=== PATIENT | male | born 1960 | race Caucasian/White ===

== ENCOUNTER → 2017-03-30 12:16 | Day surgery (SDC) | payer MEDICARE, MEDICAID ==
--- NOTE | 2017-03-14 09:39 | HP ---
PREOPERATIVE HISTORY AND PHYSICAL: DATE OF SURGERY: 03/30/17 DATE OF OFFICE VISIT: 03/10/17 ATTENDING SURGEON: Marcelina Navas MD * (DICTATED BY CELIO JIMENEZ) PROCEDURES: Left shoulder arthroscopic decompression and debridement, superior capsular reconstruction. CHIEF COMPLAINT: Left shoulder pain. HISTORY OF PRESENT ILLNESS: Prabhjot is a 56-year-old male who presents to the clinic for followup of left shoulder pain for almost 2 years. He has arthritis and a massive rotator cuff tear. He has failed conservative measures to include injections and has therefore agreed to undergo a left shoulder arthroscopic decompression and debridement, superior capsular reconstruction with Dr. Navas on 03/30/17. PAST MEDICAL HISTORY: 1. Asthma. 2. Hypertension. 3. BPH. 4. Allergies. PAST SURGICAL HISTORY: Bilateral knee surgeries and 3 shoulder surgeries on the right side. MEDICATIONS: 1. Diazepam 2 mg take 1 to 2, at 30 minutes prior to procedure. 2. Voltaren 1% apply 2 g to the affected area 4 times a day. 3. Albuterol 90 mcg/act 2 puffs 4 times a day as needed. 4. Advair 250/50 one puff twice a day. 5. Flomax 0.4 mg 1 by mouth daily. 6. Singulair 10 mg 1 by mouth daily. 7. Lipitor 40 mg 1 by mouth at night. 8. Morphine sulfate 15 mg 1 by mouth twice a day. 9. Trazodone 100 mg as needed. j10. Metoprolol tartrate 50 mg daily. 11. Tamsulosin HCl 4 mg daily. ALLERGIES: NSAIDS. FAMILY HISTORY: Positive for heart disease, diabetes, and cancer. SOCIAL HISTORY: He denies tobacco or illegal drug use. REVIEW OF SYSTEMS: A 14-point review of systems was reviewed with the patient and positive for current complaint, otherwise negative. He denies chest pain, shortness of breath. He denies history of bleeding disorder. He denies history of DVT or PE. He denies prior complications with anesthesia. PHYSICAL EXAMINATION GENERAL: Well-developed, well-nourished 56-year-old male, in no acute distress. Alert and oriented x3. Appropriate mood and affect. VITALS: Height 70, weight 210. Pulse 56, blood pressure 121/80, temperature 98.6, and BMI 30.1. HEENT: Normocephalic, atraumatic. PERRLA. Throat clear. NECK: Supple. PULMONARY: Lungs are clear to auscultation bilaterally. No wheezing, rhonchi, or rales. CARDIO: Regular rate and rhythm. S1 and S2. No murmurs, gallops, or rubs. No edema. ABDOMEN: Positive bowel sounds. Soft and nontender. NEURO: Alert and oriented x3. Cranial nerves grossly intact. Sensation is intact to light touch. MUSCULOSKELETAL: Left upper extremity, skin is intact. No warmth or erythema. Nontender to palpation. Forward flexion and abduction to 130 with a lot of pain , scapular compensation. Positive Poly's test; +4/5 strength with supraspinatus testing; +4/5 to infraspinatus and subscapularis testing. External rotation to 30 degrees. +2 radial pulses. Sensation is intact to light touch distally. STUDIES: MRI of the left shoulder revealed advanced glenohumeral arthritis and a massive full thickness rotator cuff tear with retraction and advanced muscle atrophy. IMPRESSION: Left shoulder osteoarthritis and rotator cuff tear. PLAN: The patient is scheduled to undergo a left shoulder arthroscopic decompression and debridement and superior capsular reconstruction for the treatment of massive full thickness rotator cuff tear with Dr. Navas on . Risks of surgery were discussed with the patient. The patient was given a refill for Voltaren gel today in clinic and he was given a script for Percocet to use for postop pain. The patient will follow up with Dr. Navas in 10 to 14 days after surgery for followup and suture removal. CELIO JIMENEZ [id number]/[facility] #: [id number] [facility] HOSPITALTalya
[~2017-03-30 12:16] MED LIST: Acetaminophen TAB* 325 MG ONE; Acetaminophen TAB* 325 MG PO ONE; Buffered Lidocaine 0.9% SYRIN* 5 ML/SYR SYRINGE INTRADERM ONE; Buffered Lidocaine 0.9% SYRIN* 5 ML/SYR SYRINGE ONE; Bupivacaine 0.25% SDV* 30 ML ONE; Dexamethasone IV* 4 MG/ML 1 ML (4 MG) IV SLOW PU ONE; Dexamethasone IV* 4 MG/ML 1 ML (4 MG) ONE; EPHEDrine (Pressors)* 50 MG/ML VIAL ONE; Famotidine IV* 10 MG/ML 2 ML (20 mg) IV ONE; Famotidine IV* 10 MG/ML 2 ML (20 mg) ONE; Glycopyrrolate IV* 0.2 MG/ML 1 ML VIAL ONE; HYDROmorphone INJ* 1 MG/ML CARPUJECT SYRINGE ONE; Levalbuterol 0.63MG/3ML NEB* UNIT OF USE INH PRN; Lidocaine 2% PF * 5 ML VIAL ONE; Lidocaine 2% PF* 10 ML AMP ONE; Midazolam* 1 MG/ML 2 ML VIAL (2 MG) ONE; Neostigmine Methylsulfate* 2 MG/2 ML SYRINGE ONE; PROCHLORPERAZINE INJ 5 MG/ML 2 ML VIAL IV PRN; Propofol* 10 MG/ML 20 ML BTL IV PUSH ONE; ROPIVACAINE 5 MG/ML 30 ML BTL (0.5%) ONE; Rocuronium* 10 MG/ML VIAL ONE; Scopolamine 1.5 mg* PATCH TRANSDERM PRN; Scopolomine PATCH Remove* 1 NOTE MISC PATCH OFF ONE; Sterile Water for Inj* 10 ML ONE; ceFAZolin 2 GM PREMIX (*) 2 GM/50 ML BAG IVPB ONE; diPHENhydraMINE IV* 50 MG/ML 1 ml VIAL (BENADRYL) IV PRN; fentaNYL* 50 MCG/ML 2 ML VIAL (100 MCG VIAL) ONE; oxyCODONE TAB* 5 MG TAB ONE; oxyCODONE TAB* 5 MG TAB PO PRN
[2017-03-30] MEDS: fentaNYL* 50 MCG/ML 2 ML VIAL (100 MCG VIAL) IV PRN ×2 (17:11→17:17)
[2017-03-30] MEDS: HYDROmorphone INJ* 1 MG/ML CARPUJECT SYRINGE IV PRN ×5 (17:13→18:10)
[2017-03-30 19:25] VITALS: BP 132/81
--- NOTE | 2017-04-10 02:21 | OP ---
CC: PCP OPERATIVE REPORT: DATE OF OPERATION: 03/30/17 DATE OF : 60 SURGEON: Marcelina Navas MD SHAFTING WORKER: CELIO Donnelly ANESTHESIOLOGIST: Juanita Dominguez MD ANESTHESIA: General with interscalene block, although the block may not have actually taken hold due to patient's pain. PRE-OP DIAGNOSIS: Left shoulder massive rotator cuff tears with severe glenohumeral osteoarthritis. POST-OP DIAGNOSIS: Left shoulder massive rotator cuff tears with severe glenohumeral osteoarthritis. OPERATIVE PROCEDURE: Left shoulder arthroscopy with: 1. Extensive glenohumeral debridement including chondroplasty. 2. Removal of foreign body x2. 3. Left shoulder superior capsular reconstruction. 4. Revision subacromial decompression. COMPLICATIONS: None. ESTIMATED BLOOD LOSS: Minimal. IMPLANTS USED: Two Q-Fix anchors along with glenoid and two 4.75 Healicoils for medial row and one Multifix in the lateral row as well as the ArthroFlex graft. INDICATIONS: Prabhjot Andujar is a 56-year-old male with a complicated shoulder history that has previous rotator cuff repair and severe osteoarthritis of the glenoid. He has MRI findings confirming a failed rotator cuff tear with significant atrophy, superior migration of his shoulder with severe osteoarthritis. As the patient is 56 years old, the option for reverse shoulder replacement is not appropriate at this age and we discussed options for his pain relief, which would be possibly superior capsular reconstruction. The patient was counseled that this may or may not be helpful. We would like to get until at least age 60 and then we can consider reverse replacement. Risks and benefits to surgery were discussed in length including but not limited to bleeding, infection, damage to nerves, vessels, surrounding structures, wound nonhealing, persistent pain, need for further surgery, scarring, stiffness, incomplete release of symptoms, risk of anesthesia, failure , fracture, need for further surgery, and risk of DVT. He has elected to proceed. DESCRIPTION OF PROCEDURE: The patient was greeted in the preoperative area by the attending surgeon. Correct extremity was marked. Consent was confirmed. He underwent interscalene nerve block by the anesthesiologist after which he was brought to the operating suite, where he was placed in supine position on the operating table. He then underwent general anesthesia with endotracheal intubation, after which the patient was positioned in right lateral decubitus position with all bony prominences padded. He was supported with an axillary roll and a pegboard. The left shoulder was draped unsterile with 10 pounds of traction. Left shoulder was then prepped and draped in the usual sterile fashion beginning with chlorhexidine soap, scrub, and alcohol wipe and a final prep with ChloraPrep. After appropriate surgical pause indicating side, site, procedure, and administration of antibiotics, a standard posterolateral portal was made sharply with 11 blade and the scope was introduced into the joint. Joint was examined. There was abundant grade 4 changes of the humeral head as well as grade 3 and 4 changes of the glenoid. The anterior portal was made in an outside-in fashion. The shaver was used to debride and do a small chondroplasty as well as remove whatever the anterior and posterior labrum that was impinging with unstable flaps. There was complete massive rotator cuff tear. The previous anchors were identified as well as other sutures. These were then removed x2. The lateral portal was made in an outside-in fashion. The undersurface of the acromion was identified and skeletonized. There was bursa that was present. There was irregular spur anterolaterally, which was taken down using a 4-0 oval augie. Once this was completed, attention was directed to the superior capsular reconstruction. The glenoid was repaired first by using the rasp as well as the augie to remove some of the labrum and allow for bony bleeding bed. A stab incision was made in Nevaiser's portal to allow for placement of the two Q-Fix anchors. These were then drilled and placed with excellent purchase. The greater tuberosity was then identified. There was partial tearing of the subscapularis but decision was made to not repair this as there was concern it would not heal. His supraspinatus was completely torn into a portion at least a quarter of the infraspinatus torn as well. A augie was then used to help decorticate the greater tuberosity and allow for bony bleeding bed. The rasp was also used. At this point, due to separate stab incisions, two 4.75 Healicoil anchors were placed anteriorly and posteriorly. At this point, the awl was also used to make small microfracture-like areas along the greater tuberosity to help stimulate bony bleeding and healing. At this point, arthroscopic ruler was then brought in through the portals to measure the anterior to posterior distance between the medial anchors and the lateral anchors and then the medial to lateral distance between the anterior anchors and the posterior anchors. These were then written down. The attending surgeon then went on the back table , prepared the graft to accommodate these measurements with at least a 1 cm ridge around it for overlap. The Tuohy needle was used to help perforate the graft to allow for easier passage of the sutures. Once the ArthroFlex graft was prepared, it was brought to the patient. First the medial Q-Fix anchors were passed through the graft through four separate stab incisions. One limb from each anchor was passed through the medial portion of the graft and tied together. The remaining strands were then passed separately through the graft as well. This would help allow shuttling of the graft to the medial portion. The 4.75 Healicoil anchors, one strand from each of those anchors were then passed through the lateral portion of the graft to be later tied down. Each strand was passed through four separate portions in the graft. Once all the sutures were passed and there was a stay suture left in each of the Q-Fix anchors for later dog ears, the Q-Fix sutures were then pulled to help shuttle the graft back into place. Once this was fully seated and appropriately positioned, they were then tied together to allow for fixation along the medial aspect along the glenoid. This helped to demonstrate that the graft was completely covering the area of interest. Then, the previously passed Healicoil stitches through the graft were then tied down and this allowed for horizontal mattress to configuration. The stay sutures through the anchors were then passed through any remaining portions of the graft that provided a dog ear and these were tied down. These were passed with simple knots. The remaining strands of sutures were then brought through a Multifix anchor, which was then placed for lateral row fixation. At this point, final images were obtained of the graft placement. The wounds were copiously irrigated with sterile saline. The wounds were closed with 3-0 nylon in interrupted fashion. The joint was injected with 0.25% Marcaine plain. Sterile dressings were applied as well as Cryo/Cuff and UltraSling. He was awoken from anesthesia and transferred to PACU in stable condition. POSTOPERATIVE PLAN: He will be nonweightbearing and no range of motion of the shoulder for 6 weeks. He will start physical therapy at 4 weeks. He will be discharged on pain medication as well as antibiotics. I will see the patient back in 10 to 14 days. DVT prophylaxis considered but deferred due to no previous personal or family history. [id number]/[facility] #: [id number] LOI
== END | disposition home or self-care (01) ==
LOC: OR 12:16
PROVIDERS: ATTEND Orthopaedic Surgery
DX: M75.122 Complete rotator cuff tear or rupture of left shoulder, not specified as traumatic (principal); M19.012 Primary osteoarthritis, left shoulder; G89.18 Other acute postprocedural pain; J45.909 Unspecified asthma, uncomplicated; I10 Essential (primary) hypertension; N40.0 Benign prostatic hyperplasia without lower urinary tract symptoms; Z88.6 Allergy status to analgesic agent
CPT/HCPCS: A9270-GY; C1713; J0690; J1100; J1170; J2001; J2250; J2704; J2795; J3010; Q4125

== ENCOUNTER 2017-06-04 09:10 | Emergency (ER) | payer MEDICARE, MEDICAID ==
[2017-06-04 09:21] VITALS: BP 121/72
--- OUTSIDE RECORDS SUMMARY | 2017-06-04 09:23 | XMS REPORT ---
:1960 External Reference #:[id number] Author Organization [facility] Address [address] [address] Phone [phone] Care Team Providers Name Role Phone Oliver Goss MD Primary Care Physician Unavailable Payers Type Date Identification Numbers Payment Provider Subscriber Medicare Primary Effective: Policy Number: Medicare Prabhjot Stahl 1989 [id number] PayID: [id number] [address] [place] [address] Medigap Part B Policy Number: [id number] Medicaid Prabhjot Stahl PayID: [id number] [address] [place] [address] Problems Date Description Provider Status Onset: 01/14/2015 Disorder of joint of shoulder region Thom Quigley M.D. Active Onset: 05/04/2016 Localized, primary osteoarthritis of the Marcelina Navas MD Active shoulder region Onset: 05/04/2016 Sprain of shoulder and upper arm Marcelina Navas MD Active Onset: 11/02/2016 Full thickness rotator cuff tear Marcelina Navas MD Active Social History Type Date Description Comments Lives With Alone ETOH Use Denies alcohol use Smoking Patient has never smoked Exercise Type/Frequency Exercises regularly Allergies, Adverse Reactions, Alerts Date Description Reaction Status Severity Comments 07/17/2008 Motrin active anaphylaxis 03/10/2017 NSAIDS active Medications Medication Date Status Form Strength Qnty SIG Indications Ordering Provider Oxycodone HCL Active Tablets 10mg 40tabs take 1-1 Marcelina 017 1/2 tato Navas MD every 4-6 hours as needed pain Cephalexin Active Tablets 500mg 12tabs take 1 by Marcelina 017 mouth four MD Yosef times a day x 3 days Oxycodone-Morales Active Tablets 5-325mg 60tabs 1-2 tabs by M19.012 Marcelina taminophen 017 mouth every MD Yosef 4-6 hours as needed for post op pain. Do not fill until 03/28/17 Diazepam Active Tablets 2mg 2tabs Take 1-2 Fabriceb 017 tabs 30 min MD Yosef prior to procedure Voltaren Active Gel 1% 100g apply 2g to Jin Tong [facility] four M.DGwendolyn times a day Albuterol Active Aerosol 90mcg/Act 1units 2 puffs qid Unknown 000 prn Advair Diskus Active Misc 250/50 1units 1 puff bid Unknown 000 Flomax Active Caps ER 0.4mg 90caps 1 po qd Unknown 000 24HR Singulair Active Tablets 10mg 30tabs 1 po qd Unknown 000 Lipitor Active Tablets 40mg 90tabs 1 po qhs Unknown 000 Morphine Active Tablets 15mg 20tabs 1 by mouth Unknown Sulfate 000 twice a day Trazodone HCL Active 100mg Unknown 000 Metoprolol Active 50mg Unknown Tartrate 000 Tamsulosin Active 4mg Unknown HCL 000 Percocet Hx Tablets 5-325mg 60tabs 1-2 po Thom 011 - q4-6h prn Young, pain M.D. 014 Toprol XL Hx Tablets 50mg 90tabs 1 po qd Qutaybeh 009 - ER 24HR S. Silvio Mckinley M.DGwendolyn Toprol XL Hx Tablets 25mg 180tab 2 po qd Qutaybeh 009 - ER 24HR s S. Patrick Mckinley M.DGwendolyn Aspirin Hx Tablets 325mg 30tabs 1 po qd Qutaybeh 009 - DR S. Silvio Mckinley M.D. Toprol XL Hx Tablets 25mg 30tabs 1 po qd Qutaybeh 009 - ER 24HR S. Elías 009 Epifanio Protonix Hx Tablets 20mg 30tabs 1 po qd Unknown 000 - DR 014 Lisinopril Hx Tablets 20mg 1 po qd Unknown 000 - [address] 30caps 2 po qd Unknown 000 - PA [address] 30mg 30caps 3 po qd Unknown 000 - Part 014 Medications Administered in Office Medication Date Status Form Strength Qnty SIG Indications Ordering Provider Triamcinolone 02/03/ Administered Injection Zaneb (Kenalog) 2016 MD Yosef Triamcinolone 11/02/ Administered Injection Zaneb (Kenalog) 2016 MD Yosef Triamcinolone 08/03/ Administered Injection Zaneb (Kenalog) 2016 MD Yosef Triamcinolone 05/04/ Administered Injection Zaneb (Kenalog) 2015 MD Yosef Triamcinolone 12/31/ Administered Injection Alejandra (Kenalog) 2015 SUSAN Turner Triamcinolone 12/31/ Administered Injection Alejandra (Kenalog) 2015 SUSAN Turner Triamcinolone 09/10/ Administered Injection Zaneb (Kenalog) 2015 MD Yosef Triamcinolone 09/08/ Administered Injection Zaneb (Kenalog) 2015 MD Yosef Triamcinolone 05/26/ Administered Injection Zaneb (Kenalog) 2014 MD Yosef Depomedrol 80MG 01/14/ Administered Injection Thom 2014 Epifanio Quigley Depomedrol 80MG 09/05/ Administered Injection Thom 2014 Epifanio Quigley Depomedrol 80MG 12/13/ Administered Injection Thom 2013 Epifanio Quigley Depomedrol 80MG 08/23/ Administered Injection Thom 2013 Epifanio Quigley Depomedrol 80MG 02/08/ Administered Injection Thom 2012 Epifanio Quigley Depomedrol 80MG 07/11/ Administered Injection Thom 2012 Epifanio Quigley Depomedrol 80MG 03/16/ Administered Injection Thom 2011 Epifanio Quigley Depomedrol 80MG 03/16/ Administered Injection Thom 2011 Epifanio Quigley Vital Signs Date Vital Result Comment 05/10/2017 Height 70 inches 5'10" Weight 210.00 lb Respiratory Rate 12 /min Body Temperature 96.0 F Pain Level 1 BMI (Body Mass Index) 30.1 kg/m2 04/08/2017 Height 70 inches 5'10" Weight 210.00 lb BP Systolic 124 mmHg BP Diastolic 78 mmHg Respiratory Rate 18 /min Body Temperature 97.4 F Pain Level 0 BMI (Body Mass Index) 30.1 kg/m2 03/10/2017 Height 70 inches 5'10" Weight 210.00 lb Heart Rate 56 /min BP Systolic 121 mmHg BP Diastolic 80 mmHg Body Temperature 96.2 F Pain Level 7 BMI (Body Mass Index) 30.1 kg/m2 02/03/2017 Height 70 inches 5'10" Weight 210.00 lb Heart Rate 65 /min BP Systolic 110 mmHg BP Diastolic 70 mmHg Body Temperature 96.2 F BMI (Body Mass Index) 30.1 kg/m2 11/02/2016 Height 71 inches 5'11" Weight 213.00 lb Heart Rate 76 /min BP Systolic 121 mmHg BP Diastolic 80 mmHg Respiratory Rate 17 /min Body Temperature 96.9 F Pain Level 7 BMI (Body Mass Index) 29.7 kg/m2 08/03/2016 Height 71 inches 5'11" Weight 230.00 lb Heart Rate 76 /min BP Systolic Sitting 122 mmHg BP Diastolic Sitting 64 mmHg Respiratory Rate 16 /min Pain Level 5 BMI (Body Mass Index) 32.1 kg/m2 05/04/2016 Height 71 inches 5'11" Weight 230.00 lb Pain Level 7 BMI (Body Mass Index) 32.1 kg/m2 01/01/2016 Height 71 inches 5'11" Weight 230.00 lb BMI (Body Mass Index) 32.1 kg/m2 09/11/2015 Height 71 inches 5'11" Weight 230.00 lb Pain Level 8 BMI (Body Mass Index) 32.1 kg/m2 09/09/2015 Height 71 inches 5'11" Weight 230.00 lb Pain Level 8 BMI (Body Mass Index) 32.1 kg/m2 07/22/2015 Height 71 inches 5'11" Weight 230.00 lb Pain Level 7 BMI (Body Mass Index) 32.1 kg/m2 05/26/2015 Height 71 inches 5'11" Weight 230.00 lb Pain Level 7 BMI (Body Mass Index) 32.1 kg/m2 01/14/2015 Height 71 inches 5'11" Weight 230.00 lb Pain Level 6 BMI (Body Mass Index) 32.1 kg/m2 09/05/2014 Height 71 inches 5'11" Weight 230.00 lb Pain Level 7 BMI (Body Mass Index) 32.1 kg/m2 03/28/2014 Height 71 inches 5'11" Heart Rate 77 /min BP Systolic 136 mmHg BP Diastolic 90 mmHg 03/04/2014 Height 71 inches 5'11" Weight 230.00 lb Heart Rate 58 /min BP Systolic 143 mmHg BP Diastolic 94 mmHg BMI (Body Mass Index) 32.1 kg/m2 02/14/2014 Height 71 inches 5'11" Weight 220.00 lb Heart Rate 76 /min BP Systolic 132 mmHg BP Diastolic 84 mmHg BMI (Body Mass Index) 30.7 kg/m2 12/13/2013 Height 71 inches 5'11" Weight 220.00 lb Heart Rate 67 /min Pain Level 5 BMI (Body Mass Index) 30.7 kg/m2 08/23/2013 Height 71 inches 5'11" Weight 235.00 lb Heart Rate 67 /min BP Systolic 138 mmHg BP Diastolic 75 mmHg BMI (Body Mass Index) 32.8 kg/m2 08/10/2010 Height 71 inches 5'11" Weight 217.00 lb Heart Rate 64 /min BP Systolic 127 mmHg BP Diastolic 82 mmHg BMI (Body Mass Index) 30.3 kg/m2 09/02/2009 Weight 229.00 lb Heart Rate 64 /min BP Systolic 120 mmHg BP Diastolic 80 mmHg Respiratory Rate 16 /min 03/05/2009 Weight 221.00 lb Heart Rate 66 /min BP Systolic Sitting 112 mmHg BP Diastolic Sitting 70 mmHg Respiratory Rate 16 /min 10/03/2008 Height 72 inches 6'0" Weight 227.00 lb Heart Rate 72 /min BP Systolic Sitting 118 mmHg L BP Diastolic Sitting 60 mmHg L BP Diastolic Standing 60 mmHg BMI (Body Mass Index) 30.8 kg/m2 07/17/2008 Height 72 inches 6'0" Weight 227.00 lb Heart Rate 83 /min BP Systolic Sitting 124 mmHg BP Diastolic Sitting 80 mmHg BMI (Body Mass Index) 30.8 kg/m2 Results Test Date Test Result H/L Range Note Laboratory test finding 03/29/2017 Arthroflex SEE RESULTS BELO 1, 2 <SEE NOTE> Basic Metabolic Panel 03/12/2017 Sodium 139 mmol/L 133-145 Potassium 4.2 mmol/L 3.5-5.0 Chloride 104 mmol/L 101-111 Co2 Carbon Dioxide 29 mmol/L 22-32 Anion Gap 6 mmol/L 2-11 Glucose 89 mg/dL 70-100 Blood Urea Nitrogen 16 mg/dL 6-24 Creatinine 0.93 mg/dL 0.67-1.17 BUN/Creatinine Ratio 17.2 8-20 Calcium 9.1 mg/dL 8.6-10.3 Egfr Non- 84.0 >60 Egfr 108.1 >60 3 CBC Auto Diff 03/12/2017 White Blood Count 7.5 10^3/uL 3.5-10.8 Red Blood Count 4.72 10^6/uL 4.0-5.4 Hemoglobin 14.4 g/dL 14.0-18.0 Hematocrit 43 % 42-52 Mean Corpuscular Volume 91 fL 80-94 Mean Corpuscular Hemoglobin 31 pg 27-31 Mean Corpuscular HGB Conc 34 g/dL 31-36 Red Cell Distribution Width 14 % 10.5-15 Platelet Count 276 10^3/uL 150-450 Mean Platelet Volume 8 um3 7.4-10.4 Abs Neutrophils 3.8 10^3/uL 1.5-7.7 Abs Lymphocytes 2.7 10^3/uL 1.0-4.8 Abs Monocytes 0.7 10^3/uL 0-0.8 Abs Eosinophils 0.2 10^3/uL 0-0.6 Abs Basophils 0.1 10^3/uL 0-0.2 Abs Nucleated RBC 0 10^3/uL Granulocyte % 50.8 % 38-83 Lymphocyte % 35.8 % 25-47 Monocyte % 9.2 % High 1-9 Eosinophil % 3.2 % 0-6 Basophil % 1.0 % 0-2 Nucleated Red Blood Cells % 0 Urinalysis Profile 03/04/2014 Urine Color Straw 4 Urine Appearance Clear 4 Urine Specific Summit 1.004 Low 1.010-1.030 4 Urine pH 6.0 5-9 4 Urine Urobilinogen Negative Negative 4 Urine Ketones Negative Negative 4 Urine Protein Negative Negative 4 Urine Leukocytes Negative Negative 4 Urine Blood Negative Negative 4 Urine Nitrite Negative Negative 4 Urine Bilirubin Negative Negative 4 Urine Glucose Negative Negative 4 CBC No Diff 03/04/2014 White Blood Count 7.8 10^3/uL 4.8-10.8 4 Red Blood Count 4.49 10^6/uL 4.0-5.4 4 Hemoglobin 14.1 g/dL 14.0-18.0 4 Hematocrit 41 % Low 42-52 4 Mean Corpuscular Volume 92 fL 80-94 4 Mean Corpuscular Hemoglobin 31 pg 27-31 4 Mean Corpuscular HGB Conc 34 g/dL 31-36 4 Red Cell Distribution Width 14 % 10.5-15 4 Platelet Count 274 10^3/uL 150-450 4 Mean Platelet Volume 8 um3 7.4-10.4 4 Basic Metabolic Panel 03/04/2014 Sodium 139 mmol/L 133-145 4 Potassium 4.3 mmol/L 3.7-5.6 4 Chloride 107 mmol/L 101-111 4 Co2 Carbon Dioxide 28 mmol/L 22-32 4 Anion Gap 4 mmol/L 2-11 4 Glucose 90 mg/dL 70-100 4 Blood Urea Nitrogen 12 mg/dL 6-24 4 Creatinine 1.02 mg/dL 0.67-1.17 4 BUN/Creatinine Ratio 11.8 8-20 4 Calcium 9.5 mg/dL 8.6-10.3 4 Egfr Non- 76.4 >60 4 Egfr 98.3 >60 4, 5 Type & Screen 03/04/2014 Patient Blood Type O Negative 4 Antibody Screen NEGATIVE 4 Urine Culture And Sensitivities 03/04/2014 Urine Culture (SEE NOTE) 4, 6 1 PRIMARY OSTEOARTHRITIS, LEFT SHOULDER, STRAIN OF M 2 SEE RESULTS BELOW [id number] ARTHROFLEX TRANSFUSED 03/30/17 1255 3 Because ethnic data is not always readily available, this report includes an eGFR for both -Americans and non- Americans. The National Kidney Disease Education Program (NKDEP) does not endorse the use of the MDRD equation for patients that are not between the ages of 18 and 70, are , have extremes of body size, muscle mass, or nutritional status, or are non- or non-. According to the National Kidney Foundation, irrespective of diagnosis, the stage of the disease is based on the level of kidney function: Stage Description GFR(mL/min/1.73 m(2)) 1 Kidney damage with normal or decreased GFR 90 2 Kidney damage with mild decrease in GFR 60-89 3 Moderate decrease in GFR 30-59 4 Severe decrease in GFR 15-29 5 Kidney failure <15 (or dialysis) 4 AA 03/15 5 Because ethnic data is not always readily available, this report includes an eGFR for both -Americans and non- Americans. The National Kidney Disease Education Program (NKDEP) does not endorse the use of the MDRD equation for patients that are not between the ages of 18 and 70, are , have extremes of body size, muscle mass, or nutritional status, or are non- or non-. According to the National Kidney Foundation, irrespective of diagnosis, the stage of the disease is based on the level of kidney function: Stage Description GFR(mL/min/1.73 m(2)) 1 Kidney damage with normal or decreased GFR 90 2 Kidney damage with mild decrease in GFR 60-89 3 Moderate decrease in GFR 30-59 4 Severe decrease in GFR 15-29 5 Kidney failure <15 (or dialysis) 6 RUN DATE: 03/06/14 [facility] LAB LIVE PAGE 1 RUN TIME: [address] [place], [place] [address] Specimen Inquiry Name: PRABJHOT STAHL : [address]: Thom Quigley MD Acct: [id number] Unit: [id number] AGE: 53 Location: [facility] Re03/04/14 SEX: M Status: REG REF SPEC: [id number] ALBA: 03/04/14-[address]: Thom Quigley MD REQ: [id number] RECD: 03/04/14 STATUS: QUIN LEY DR: Bonilla Skelton MD _ SOURCE: URINE SPDESC: ORDERED: Urine Culture COMMENTS: SUDHEER 03/15 QUERIES: Urine Source: Clean Catch Procedure Result Verified Site Urine Culture Final 03/06/14- 1114 ML No Growth Day 2 (<1,000 CFU/mL) END OF REPORT * ML=Testing performed at Main Lab DEPARTMENT OF PATHOLOGY, [address] [place] [address] Michael Smalls M.D. Director [facility] # [id number] Procedures Date CPT Code Description Status 03/30/2017 65615 Arthroscopy,Shoulder Decompression Of Subacromial Space Completed W/Acromio 03/30/2017 18275 Arthroscopy,Shoulder Decompression Of Subacromial Space Completed W/Acromio 03/30/2017 44973 Arthroscopy,Shoulder,Surg,Capsulorrhaphy Completed 02/03/2017 36396 Inject/Drain Joint/Bursa Major Completed 11/02/2016 10400 Inject/Drain Joint/Bursa Major Completed 08/03/2016 48538 Inject/Drain Joint/Bursa Major Completed 05/04/2016 83800 Inject/Drain Joint/Bursa Major Completed 01/01/2016 87720 Inject/Drain Joint/Bursa Major Completed 09/11/2015 25783 Inject/Drain Joint/Bursa Major Completed 09/09/2015 98023 Inject/Drain Joint/Bursa Major Completed 05/26/2015 88669 Inject/Drain Joint/Bursa Major Completed 01/14/2015 12732 Inject/Drain Joint/Bursa Major Completed 12/24/2014 17113 ECHO Transthorasic Realtime 2D W Doppler & Color Completed Flow Hosp 09/05/2014 38862 Inject/Drain Joint/Bursa Major Completed 03/28/2014 73974 Rad Shoulder Comp, Min. 2 Views Completed 03/28/2014 82033 Rad Shoulder Comp, Min. 2 Views Completed 03/15/2014 12262 Arthroplasty Glenohumeral Joint Hemiarthroplasty Completed 03/15/2014 81884 Arthroplasty Glenohumeral Joint Hemiarthroplasty Completed 02/14/2014 67823 Rad Shoulder Comp, Min. 2 Views Completed 02/14/2014 60293 Rad Shoulder Comp, Min. 2 Views Completed 02/14/2014 76373 Rad Shoulder Comp, Min. 2 Views Completed 02/14/2014 27743 Rad Shoulder Comp, Min. 2 Views Completed 12/13/2013 78395 Inject/Drain Joint/Bursa Major Completed 08/23/2013 76822 Inject/Drain Joint/Bursa Major Completed 02/08/201317069 Inject/Drain Joint/Bursa Major Completed 07/11/201234100 Inject/Drain Joint/Bursa Major Completed 03/16/201259155 Inject/Drain Joint/Bursa Major Completed 03/16/201244779 Inject/Drain Joint/Bursa Major Completed 02/02/2012 18841 Arthroscopy Shoulder Debridement Extensive Completed 02/02/2012 84748 Arthroscopy Shoulder Debridement Extensive Completed 02/02/2012 80511 Arthroscopy,Unlisted Procedure Completed 02/02/2012 79756 Arthroscopy,Unlisted Procedure Completed 01/31/2012 02368 EKG, Interpretation Only Completed 12/23/2011 10273 Rad Shoulder Comp, Min. 2 Views Completed 11/20/2010 50048 Arthroscopy Shoulder,W/Rotator Cuff Repair Completed 11/20/2010 72403 Arthroscopy Shoulder,W/Rotator Cuff Repair Completed 08/10/2010 26122 Rad Shoulder Comp, Min. 2 Views Completed 09/02/2009 57184 EKG Tracing & Interpretation Completed 08/26/2009 45967 ECHO Transthoracic, Real-Time 2D With Doppler And Color Completed Flow 03/05/2009 46401 EKG, Interpretation Only Completed 03/05/2009 82308 EKG Tracing & Interpretation Completed 02/27/2009 92299 ECHO Transthoracic, Real-Time 2D With Doppler And Color Completed Flow 09/20/2008 60873 ECHO Transthoracic, Real-Time 2D With Doppler And Color Completed Flow 09/20/2008 41158 Echocardiogram Completed 09/20/2008 07960 Pulse Doppler & Continuous Wave Completed 09/20/2008 55756 Color Doppler Completed 07/17/2008 21834 EKG Tracing & Interpretation Completed 07/09/2008 57331 Selective Coronary Angioplasty Completed 07/09/2008 41228 S/I/R Inj Proc Vent And Or Atrial Completed 07/09/2008 64156 Coronary Angiography Completed 07/09/2008 69539 Inj Proc LFT Vent/LFT Atrl Angio Completed 07/09/2008 57612 Left Heart Catheterization Completed 07/09/2008 62028 ECHO Transthorasic Realtime 2D W Doppler & Color Completed Flow Hosp 07/09/2008 87273 EKG, Interpretation Only Completed 07/08/2008 84955 Treadmill Interp/Report Only Completed 07/08/2008 84800 Stress Test Supervsn W/Out I/R Completed Encounters Type Date Location Provider CPT E/M Dx Office Visit 03/10/2017 2:15p [facility] [place] [address] M19.012 [facility] M75.122 Office Visit 02/03/2017 8:00a [facility] [place] [address] M19.012 [facility] S46.012A Office Visit 11/02/2016 8:00a [facility] [place] [address] M19.012 [facility] S46.012A M75.121 Office Visit 09/09/2015 3:30p [facility] [place] [address] M19.012 [facility] M75.121 Office Visit 07/22/2015 1:30p [facility] [place] [address] M19.012 [facility] M75.121 Office Visit 05/26/2015 2:00p [facility] [place] [address] S46.011A [facility] M19.012 Office Visit 09/05/2014 8:00a [facility] Thom Quigley M.D. 78743 716.91 [facility] 719.41 Office Visit 02/14/2014 2:30p [facility] 46990 716.91 Of C.M.ANegro Sorensen 716.91 840.4 840.4 Office Visit 07/11/2012 2:45p [facility] Thom Quigley M.D. 15340 840.4 C.M[facility]. 716.91 719.41 Office Visit 04/21/2012 8:00a [facility] 15944 726.64 C.MAsim Godfrey Office Visit 03/16/2012 8:30a [facility] Thom Quigley M.D. 06486 726.2 C.M.A. 840.4 Office Visit 03/08/2012 9:00a [facility] 39675 727.51 C.MAsim Godfrey 719.46 Office Visit 12/23/2011 9:00a [facility] Quigley M.D. 37260 715.91 C.[facility]. Office Visit 01/05/2011 1:00p [facility] Quigley M.D. 04326 718.86 [facility] Office Visit 09/14/2010 9:15a [facility] Quigley M.D. 78889 840.4 [facility] Office Visit 08/10/2010 2:15p [facility] Quigley M.D. 01276 840.4 [facility] Office Visit 09/02/2009 8:40a [facility] Qutaybeh S. 87597 425.9 Epifanio Mckinley 401.1 786.50 272.4 Office Visit 03/05/2009 9:00a [facility] Qutaybeh S. [place], 74247 425.9 MCatalina 401.1 786.50 272.4 Office Visit 10/22/2008 3:00a [facility], Gustabo Nogueira, 71378 427.89 Hospitalists M.D. Office Visit 10/21/2008 4:00a [facility], Gustabo Nogueira, 34664 490 Hospitalists M.D. Office Visit 10/03/2008 8:20a [facility] Qutaybeh S. 23259 425.9 Epifanio Mckinley 786.50 401.1 272.4 Office Visit 07/17/2008 4:15p [facility] Qutaybeh S. Elías, 02591 425.9 MCatalina 786.50 786.05 272.4 401.1 Plan of Care Future Appointment(s):06/07/2017 2:00 pm - [facility] Navas MD at [facility]05/10/2017 - Marcelina Navas, MDM19.012 Primary osteoarthritis, left shoulderFollow up:Follow up: 4 ktnmlA46.122 Complete rotatr-cuff tear/ ruptr of left shoulder, not trauma
[2017-06-04] MEDS ORDERED: Albuterol 2.5 MG/3 ML NEB.SOL* (0.083%) INH ONE (10:31)
--- NOTE | 2017-06-04 10:41 | UC ---
Respiratory Complaint HPI - HPI Summary HPI Summary: Patient presents with a past medical history of asthma. He presents today with complaints of six day onset complaints of sore throat, cough, sputum production , and wheezing. He states he has been using his albuterol every hours, and states that he now has some increased coughing, green thick sputum production and worse coughing at night. He states that he is not getting better and now presents for further evaluation of his symptoms. He denies chest pain, arm pain , jaw pain, nausea, vomiting, weakness associated with his symptoms. - History of Current Complaint Chief Complaint: UCRespiratory Stated Complaint: SINUS ISSUE CHEST CONGESTION Time Seen by Provider: 06/04/17 10:27 Hx Obtained From: Patient Onset/Duration: Gradual Onset, Lasting Days Timing: Constant Severity Initially: Mild Severity Currently: Moderate Character: Cough: Productive Aggravating Factors: Exertion, Recumbent Position Alleviating Factors: Bronchodilator, Upright Position, Spontaneous Resolution Associated Signs And Symptoms: Positive: Wheezing, URI - Risk Factors Pulmonary Embolism Risk Factors: Negative Cardiac Risk Factors: Negative Pseudomonas Risk Factors: Negative Tuberculosis Risk Factors: Negative - Allergies/Home Medications Allergies/Adverse Reactions: Allergies Allergy/AdvReac Type Severity Reaction Status Date / Time Ibuprofen [From Motrin] Allergy Swelling Verified 06/04/17 09:21 Of Face,Lips,& Throat PMH/Surg Hx/FS Hx/Imm Hx Previously Healthy: Yes Respiratory History: Asthma - Surgical History Surgical History: Yes Surgery Procedure, Year, and Place: BILATERAL knees replaced, tonsils, R shoulder replacement 01/29/16, Left shoulder surgery 3 weeks ago - Family History Known Family History: Negative: Hypertension, Diabetes, Blood Disorder - Social History Occupation: Employed Full-time Lives: Alone Alcohol Use: None Alcohol Amount: QUIT 2004 Substance Use Type: None Smoking Status (MU): Never Smoked Tobacco Have You Smoked in the Last Year: No - Immunization History Most Recent Influenza Vaccination: 2016 Most Recent Tetanus Shot: N/A Most Recent Pneumonia Vaccination: unsure Review of Systems Constitutional: Negative Skin: Negative Eyes: Negative ENT: Sore Throat Respiratory: Cough Cardiovascular: Negative Gastrointestinal: Negative Genitourinary: Negative Motor: Negative Neurovascular: Negative Musculoskeletal: Negative Neurological: Negative Psychological: Negative Is Patient Immunocompromised?: No All Other Systems Reviewed And Are Negative: Yes Physical Exam Triage Information Reviewed: Yes Appearance: Well-Appearing Vital Signs: Initial Vital Signs Temp 98.3 F 06/04/17 09:17 Pulse 75 06/04/17 09:17 Resp 22 06/04/17 09:17 BP 121/72 06/04/17 09:17 Pulse Ox 99 06/04/17 09:17 Vital Signs Reviewed: Yes Eye Exam: Normal ENT: Positive: Pharyngeal erythema, Hoarse voice Neck exam: Normal Neck: Positive: 1 Respiratory Exam: Normal Respiratory: Positive: Decreased breath sounds Cardiovascular Exam: Normal Skin Exam: Normal UC Diagnostic Evaluation - Laboratory O2 Sat by Pulse Oximetry: 99 Respiratory Course/Dx - Course Course Of Treatment: Patient presents with a past medial history of asthma, he reports six days of worsening cough, thick green sputum prduction, and night time wheezing. He has been using his albuterol every hour with temporary relief. He denies any chest pain, dyspnea. He was given an albuterol neb treatment in the clinic with improved respiratory symptoms, and RX Augmentin, and prednisone. He has normal vital sings and was in no repiratroy distress. He was told that if his symtpoms get worse to go to the ER at once. He verbalized understanding of and was in agreement with the discharge plan. - Differential Dx/Diagnosis Differential Diagnosis/HQI/PQRI: Bronchitis, Other - asthma Provider Diagnoses: bronchitis. asthma Discharge - Discharge Plan Condition: Stable Disposition: HOME Prescriptions: Amoxicillin/Clavulanate TAB* [Augmentin TAB 500 mg*] 500 mg PO BID #20 tab predniSONE TAB* [Deltasone TAB*] 20 mg PO BID #10 tab Patient Education Materials: Acute Bronchitis (ED), Asthma (ED) Referrals: Oliver Goss MD [Primary Care Provider] -
== END 2017-06-04 10:50 | disposition home or self-care (01) ==
LOC: UCEAST 09:10
DX: J40 Bronchitis, not specified as acute or chronic (principal); Z88.6 Allergy status to analgesic agent
CPT/HCPCS: 99212; G0463

== ENCOUNTER 2017-06-13 10:58 | Emergency (ER) | payer MEDICARE, MEDICAID ==
[2017-06-13 11:14] VITALS: BP 126/89
[2017-06-13] MEDS ORDERED: PrednisoLONE LIQ 3 MG/ML* 15 MG/5 ML UDC PO ONE (11:47)
[2017-06-13] MEDS ORDERED: Albuterol/Ipratropium NEB.SOL* Albuterol 2.5 MG/Ipratropium 0.5 MG 3 ML INH ONE (11:48)
[2017-06-13] MEDS ORDERED: Benzonatate CAP* 100 MG PO ONE (11:48)
--- NOTE | 2017-06-13 13:32 | RAD ---
INDICATION: 2 weeks shortness of breath, cough. COPD. COMPARISON: December 18, 2015 TECHNIQUE: Dual energy PA and routine lateral views of the chest were obtained. REPORT: Suboptimal inspiration with resulting crowding of the central pulmonary markings. No compelling peripheral alveolar consolidation to suggest pneumonia. Negative for pleural effusion or pneumothorax. Negative for cardiomegaly. Unremarkable central pulmonary vasculature. Mildly tortuous descending thoracic aorta. Prosthetic RIGHT humeral head. IMPRESSION: Suboptimal inspiration with bibasilar subsegmental atelectasis. No compelling evidence for pneumonia.
--- NOTE | 2017-06-13 18:31 | ED ---
Respiratory - HPI Summary HPI Summary: Patient presents to the ED with a complaint of cough congestion and states at night time cant breath, its been more than a week and its not going away. states used 2 inhalers this week. was on amox with steroids as well, but believes this is not working. states green stuff is coming out./ "all i know is i cant breath". Denies fevers, sweats or chills. Cough is worst of life. Denies hx of PNA. He had not had a chest xray in the last few years. Chest pain with coughing. Has taken prednisone with mild relief of symptoms, but now out of everything. Denies recent travel or calf pain. - History of Current Complaint Chief Complaint: EDUpperRespComplaint Stated Complaint: CONGESTION Time Seen by Provider: 06/13/17 11:25 Hx Obtained From: Patient Onset/Duration: Sudden Onset Timing: Constant Initial Severity: Moderate Current Severity: Moderate Pain Intensity: 5 Character: Cough (Productive) Sputum Amount: Small Sputum Color: Yellow, Green Aggravating Factor(s): URI Alleviating Factor(s): MDI (Frequency Of Use), Steriods Associated Signs and Symptoms: URI, Chest Pain with Cough, Dyspnea, Pleuritic Chest Pain, Sinus Discomfort - Risk Factors Status Asthmaticus Risk Factors: Negative Pulmonary Embolism Risk Factors: Negative Cardiac Risk Factors: Negative Pseudomonas Risk Factors: Negative Tuberculosis Risk Factors: Negative - Allergy/Home Medications Allergies/Adverse Reactions: Allergies Allergy/AdvReac Type Severity Reaction Status Date / Time Ibuprofen [From Motrin] Allergy Swelling Verified 06/04/17 09:21 Of Face,Lips,& Throat PMH/Surg Hx/FS Hx/Imm Hx Previously Healthy: Yes Endocrine/Hematology History: Denies: Hx Diabetes, Hx Thyroid Disease Cardiovascular History: Reports: Hx Hypertension Denies: Hx Congestive Heart Failure, Hx Pacemaker/ICD, Other Cardiovascular Problems/Disorders Respiratory History: Reports: Hx Asthma, Hx Chronic Obstructive Pulmonary Disease (COPD) Denies: Other Respiratory Problems/Disorders GI History: Denies: Hx Ulcer, Other GI Disorders History: Denies: Hx Renal Disease Musculoskeletal History: Reports: Hx Arthritis - ALL OVER, Other Musculoskeletal History - see surgical hx Sensory History: Reports: Hx Contacts or Glasses Denies: Hx Hearing Aid Opthamlomology History: Reports: Hx Contacts or Glasses Neurological History: Denies: Other Neuro Impairments/Disorders Psychiatric History: Reports: Hx Depression - NO MEDS, DEPRESSION FROM CHRONIC PAIN, Hx Inpatient Treatment, Hx Community Mental Health Tx Denies: Hx Eating Disorder, Hx Panic Disorder, Hx of Violent Episodes Against Others - Surgical History Surgery Procedure, Year, and Place: BILATERAL knees replaced, tonsils, R shoulder replacement 01/29/16, Left shoulder surgery 3 weeks ago Hx Anesthesia Reactions: No - Immunization History Hx Pertussis Vaccination: No Immunizations Up to Date: Unable to Obtain/Confirm Infectious Disease History: No Infectious Disease History: Denies: Hx Clostridium Difficile, Hx Hepatitis, Hx Human Immunodeficiency Virus (HIV), Hx Shingles, Hx Tuberculosis, Hx Known/Suspected VRE, Hx Known/ Suspected VRSA, History Other Infectious Disease, Traveled Outside the [place] in Last 30 Days - Family History Known Family History: Negative: Hypertension, Diabetes, Blood Disorder - Social History Occupation: Employed Full-time Lives: With Family Alcohol Use: None Alcohol Amount: QUIT 2004 Hx Substance Use: No Substance Use Type: Reports: None Hx Tobacco Use: No Smoking Status (MU): Never Smoked Tobacco Have You Smoked in the Last Year: No Review of Systems Constitutional: Negative Negative: Fever, Chills, Fatigue Eyes: Negative Negative: Sore Throat, Ear Ache, Nasal Discharge Positive: Chest Pain Positive: Shortness Of Breath, Cough Negative: Abdominal Pain, Vomiting, Diarrhea, Nausea Positive: no symptoms reported, see HPI Musculoskeletal: Negative Skin: Negative Neurological: Negative All Other Systems Reviewed And Are Negative: Yes Physical Exam Triage Information Reviewed: Yes Vital Signs On Initial Exam: Initial Vitals Temp Pulse Resp BP Pulse Ox 97.5 F 91 22 126/89 95 06/13/17 11:10 06/13/17 11:10 06/13/17 11:10 06/13/17 11:10 06/13/17 11:10 Vital Signs Reviewed: Yes Appearance: Positive: Well-Nourished, Ill-Appearing - coughing Skin: Positive: Warm, Skin Color Reflects Adequate Perfusion Head/Face: Positive: Normal Head/Face Inspection Eyes: Positive: EOMI, SANCHEZ, Conjunctiva Clear Neck: Positive: Supple, No Lymphadenopathy Respiratory/Lung Sounds: Positive: Decreased Breath Sounds Cardiovascular: Positive: RRR Musculoskeletal: Positive: Normal, Strength/ROM Intact Neurological: Positive: Sensory/Motor Intact, Alert, Oriented to Person Place, Time, Speech Normal Psychiatric: Positive: Normal, Affect/Mood Appropriate - Gigi Coma Scale Coma Scale Total: 15 Diagnostics - Vital Signs Vital Signs Temp Pulse Resp BP Pulse Ox 06/13/17 12:04 20 06/13/17 11:56 95 18 98 06/13/17 11:10 97.5 F 91 22 126/89 95 - Laboratory Lab Statement: Any lab studies that have been ordered have been reviewed, and results considered in the medical decision making process. Disposition - Course Course Of Treatment: During the course of treatment, xray obtained. breathing treatment with prednisolone 45mg oral relief. xray with no acute findings. On exam, breath sounds decreased and no rhonchi or wheezing noted. harsh cough. Sputum production is green/yellow. During ED, he was not able to cough anything up for culture. He has been on 10 days augmentin without relief. Discussed with patient, this is likely viral etiology and URI. He is given robitussin with codeine, tessalon, and albuterol inhaler and prednisone taper. Assessment/Plan: Treatment options explained to patient. Patient understands the plan, voices no concerns at this time and understands the return precatuions given to them if they develop any worsening or changing symptoms. They are OK for discharge at this time. VS stable on discharge. Primary care follow up as agreed on discharge. - Differential Dx - Cardiopulmonary Differential Diagnoses - Cardiopulmonary: Chest Wall Pain - Diagnoses Provider Diagnoses: Cough, URI (upper respiratory infection) Discharge - Discharge Plan Condition: Stable Disposition: HOME Prescriptions: Albuterol HFA INHALER* [Ventolin HFA Inhaler*] 1 puff INH Q4H PRN #1 mdi PRN Reason: Shortness Of Breath Benzonatate CAP* [Tessalon CAP*] 100 mg PO TID #21 cap Guaifenesin-Codeine [Codeine/Guaifenesin 100-10 mg/5Ml] 10 ml PO BEDTIME #100 ml MDD 10 predniSONE TAB* [Deltasone TAB*] 20 mg PO DAILY #18 tab Patient Education Materials: Acute Bronchitis (ED), Bronchospasm (ED), Acute Cough (ED) Referrals: Oliver Goss MD [Primary Care Provider] - Additional Instructions: Please follow up with your PCP I have given you the following medications: Tessalon: up to three times daily (during the day) for cough This may be coupled with an OTC cough syrup Prednisone - taper will include: Take 3 tabs on days 1, 2, 3; 2 tabs on day 4, 5 , 6; 1 tab on day 7, 8, 9 Robitussin with codeine - take 2 teaspoons at bedtime, may repeat 6 hours later - please do not drive with this medication as it will make you drowsy albuteorl inhaler as needed for cough and shortness of breath No signs of pneumonia - if you develop fevers, sweats or chills - return to the ED
== END 2017-06-13 14:03 | disposition home or self-care (01) ==
LOC: ED 10:58
DX: J06.9 Acute upper respiratory infection, unspecified (principal); Z88.6 Allergy status to analgesic agent
CPT/HCPCS: 71020; 94640; 99282; A9270-GY; J7510

== ENCOUNTER 2018-04-09 13:51 | Emergency (ER) | payer MEDICARE, MEDICAID ==
[2018-04-09 14:23] LABS: ABS Basophils 0.1 10^3/ul (0-0.2); ABS Eosinophils 0.2 10^3/ul (0-0.6); ABS Lymphocytes 2.2 10^3/ul (1.0-4.8); ABS Monocytes 0.6 10^3/ul (0-0.8); ABS Neutrophils 3.7 10^3/ul (1.5-7.7); ABS Nucleated RBC 0 10^3/ul; Eosinophil % 2.3 % (0-6); Hematocrit 43 % (42-52); Hemoglobin 14.3 g/dl (14.0-18.0); Lymphocyte % 33.1 % (25-47); Mean Corpuscular HGB Conc 34 g/dl (31-36); Mean Corpuscular Hemoglobin 31 pg (27-31); Mean Corpuscular Volume 91 fL (80-94); Mean Platelet Volume 8.1 um3 (7.4-10.4); Nucleated Red Blood Cells % 0.1; Platelet Count 285 10^3/ul (150-450); Red Blood Count 4.68 10^6/ul (4.00-5.40); Red Cell Distribution Width 14 % (10.5-15); White Blood Count 6.7 10^3/ul (3.5-10.8)
--- NOTE | 2018-04-09 14:26 | ED ---
HPI Chest Pain - HPI Summary HPI Summary: This patient is a 57 year old M presenting to [facility] with a chief complaint of intermittent chest tightness under left breast radiating throughout left chest that began one week ago. The patient rates the pain 6/10 in severity. Symptoms aggravated by positional changes. Symptoms alleviated by nothing. Patient reports SOB with exertion and dizziness (upon standing). Patient denies abd pain , calf pain, fever, and productive cough. Patient denies having similar symptoms previously. Patient denies any recent long travel. Patient states he is physically active and works out every day and does not get this chest pain with exertion. Pt denies HTN and hyperlipidemia, but medications and problem list in the chart indicate he has been treated for both in the past. No hx DM, unknown fam hx (because he did not grow up with his blood relatives), nonsmoker. Pt states he is anxious about being in the ED, and initially is reluctant to allow exam and bloodwork, and then agrees. Home Medications Medication Instructions Recorded Confirmed Type Morphine Sulfate [Morphine Sulfate 15 mg PO TID 05/30/13 06/04/17 History ER] Albuterol 2.5MG/3ML (0.083%)* 2 puff INH Q6HR PRN 03/04/14 04/19/17 History [Ventolin 2.5 MG/3 ML NEB.SATISH*] Budesonide/Formoterol Fumarate 1 aer INH BID 03/04/14 06/04/17 History [Symbicort 80-4.5 Mcg Inhaler] Metoprolol Succinate XL TAB* 50 mg PO QAM 03/04/14 06/04/17 History [Toprol XL TAB*] Tamsulosin CAP* [Flomax CAP*] 0.4 mg PO DAILY 03/04/14 06/04/17 History Trazodone HCl 200 mg PO BEDTIME 03/04/14 06/04/17 History Gabapentin CAP(*) [Neurontin 100 100 mg PO TID 08/30/14 06/04/17 History mg CAP(*)] Multivitamin 1 cap PO DAILY 03/22/17 06/04/17 History Fluticasone Propionate [Children's 1 spray INTRANASAL DAILY 04/19/17 06/04/17 History Flonase Allergy Rlf] Amoxicillin/Clavulanate TAB* 500 mg PO BID #20 tab 06/04/17 Rx [Augmentin TAB 500 mg*] predniSONE TAB* [Deltasone 20 MG 20 mg PO BID #10 tab 06/04/17 Rx TAB*] Albuterol HFA INHALER* [Ventolin 1 puff INH Q4H PRN #1 mdi 06/13/17 Rx HFA Inhaler*] Benzonatate CAP* [Tessalon CAP*] 100 mg PO TID #21 cap 06/13/17 Rx Codeine Phosphate/Guaifenesin 10 ml PO BEDTIME #100 ml MDD 10 06/13/17 Rx [Codeine/Guaifenesin 100-10 mg/5Ml] predniSONE TAB* [Deltasone 20 MG 20 mg PO DAILY #18 tab 06/13/17 Rx TAB*] - History of Current Complaint Chief Complaint: EDChestPainROMI Time Seen by Provider: 04/09/18 14:09 Hx Obtained From: Patient, Medical Records - [facility] Onset/Duration: Started Weeks Ago, Atraumatic, Still Present Timing: Intermittent Initial Severity: Moderate Current Severity: Moderate Pain Intensity: 6 Pain Scale Used: 0-10 Numeric Chest Pain Location: Discrete at: - Under left breast Chest Pain Radiates: Yes Chest Pain Radiates To:: Other - Radiating throughout left chest Character: Tightness Aggravating Factor(s): Other: - Changes in position Alleviating Factor(s): Nothing Associated Signs and Symptoms: Positive: Chest Pain, Dizziness, Shortness of Breath, Nonproductive Cough, URI, Other: - Negative calf pain. Negative: Abdominal Pain - Allergy/Home Medications Allergies/Adverse Reactions: Allergies Allergy/AdvReac Type Severity Reaction Status Date / Time ibuprofen Allergy Swelling Verified 04/09/18 14:45 Of Face,Lips,& Throat PMH/Surg Hx/FS Hx/Imm Hx Previously Healthy: No Endocrine/Hematology History: Denies: Hx Diabetes, Hx Thyroid Disease Cardiovascular History: Reports: Hx Hypertension Denies: Hx Congestive Heart Failure, Hx Pacemaker/ICD, Other Cardiovascular Problems/Disorders Respiratory History: Reports: Hx Asthma, Hx Chronic Obstructive Pulmonary Disease (COPD) Denies: Other Respiratory Problems/Disorders GI History: Denies: Hx Ulcer, Other GI Disorders History: Denies: Hx Renal Disease Musculoskeletal History: Reports: Hx Arthritis - ALL OVER, Other Musculoskeletal History - see surgical hx Sensory History: Reports: Hx Contacts or Glasses Denies: Hx Hearing Aid Opthamlomology History: Reports: Hx Contacts or Glasses Neurological History: Denies: Other Neuro Impairments/Disorders Psychiatric History: Reports: Hx Depression - NO MEDS, DEPRESSION FROM CHRONIC PAIN, Hx Inpatient Treatment, Hx Community Mental Health Tx Denies: Hx Eating Disorder, Hx Panic Disorder, Hx of Violent Episodes Against Others - Surgical History Surgery Procedure, Year, and Place: BILATERAL knees replaced, tonsils, R shoulder replacement 01/29/16, Left shoulder surgery Hx Anesthesia Reactions: No Infectious Disease History: No Infectious Disease History: Denies: Hx Clostridium Difficile, Hx Hepatitis, Hx Human Immunodeficiency Virus (HIV), Hx Shingles, Hx Tuberculosis, Hx Known/Suspected VRE, Hx Known/ Suspected VRSA, History Other Infectious Disease, Traveled Outside the [place] in Last 30 Days - Family History Known Family History: Positive: Other - Patient is unsure of family history as he did not grow up with parents Negative: Hypertension, Diabetes, Blood Disorder - Social History Lives: Alone Alcohol Use: None Alcohol Amount: QUIT 2004 Hx Substance Use: No Substance Use Type: Reports: None Hx Tobacco Use: No Smoking Status (MU): Never Smoked Tobacco Have You Smoked in the Last Year: No Review of Systems Negative: Fever Positive: Chest Pain Positive: Shortness Of Breath, Cough Negative: Abdominal Pain Positive: Other - Negative calf pain Neurological: Other - Positive dizziness All Other Systems Reviewed And Are Negative: Yes Physical Exam - Summary Physical Exam Summary: Appearance: Well-appearing, moderate pain distress, well-nourished Skin: Warm, color reflects adequate perfusion, dry Head: Normal Head/Face inspection, atraumatic Eyes: Conjunctiva clear ENT: Normal inspection Neck: Supple, no nodes, no JVD Respiratory: Lungs clear, normal breath sounds, no respiratory distress Cardio: RRR, No murmur, pulses normal, brisk capillary refill Abdomen: Soft, nontender Bowel sounds: Present Musculoskeletal: Strength Intact/ROM intact, no calf tenderness, no edema. Psychological: Normal Neuro: Alert, muscle tone normal, no focal deficit Triage Information Reviewed: Yes Vital Signs On Initial Exam: Initial Vitals Temp Pulse Resp BP Pulse Ox 98.1 F 67 16 128/83 98 04/09/18 13:53 04/09/18 13:53 04/09/18 13:53 04/09/18 13:53 04/09/18 13:53 Vital Signs Reviewed: Yes Diagnostics - Vital Signs Vital Signs Temp Pulse Resp BP Pulse Ox 04/09/18 13:53 98.1 F 67 16 128/83 98 - Laboratory Result Diagrams: 04/09/18 14:13 04/09/18 14:13 Lab Statement: Any lab studies that have been ordered have been reviewed, and results considered in the medical decision making process. - Radiology CXR Radiology Interpretation Completed By: Radiologist Summary of Radiographic Findings: CXR reveals, per radiologist, no evidence for acute disease. ED physician has reviewed this radiology report. - CT Chest/Thorax CTA CT Interpretation Completed By: Radiologist Summary of CT Findings: Chest/Thorax CTA reveals, per radiologist, 1. Slightly limited study. No evidence for pulmonary embolism. 2. Stable left upper lobe pulmonary nodule. ED physician has reviewed this radiology report. - EKG 1356 Cardiac Rate: NL EKG Rhythm: Sinus Rhythm - [address] Segment: Non-Specific Ectopy: None EKG Comparison: No Significant Change - From EKG taken on 04/19/2017 Summary of EKG Findings: An EKG at 1356 reveals normal sinus rhythm at 64 BPM with nml AV/IV CT, nml QTc, and left axis -18. No change from prior EKG taken on 04/19/2017. Re-Evaluation - Re-Evaluation First Eval Re-Evaluation Time: 15:17 Change: Improved Comment: Pain is controlled at the moment. He reports he has been having a cough with green sputum. Patient is agreeable to the CTA. Second Eval Re-Evaluation Time: 16:12 Change: Unchanged Comment: Patient is still reporting intermittent CP, he believes it is due to his chest congestion. There is no wheezing at this time. He reports relief of SOB with the duoneb. Advised of CTA results, stable pulmonary nodule, neg troponin results. Patient will follow up with his Dr. Whitehead, call in am and schedule a stress test JABIER. Chest Pain Course/Dx - Course Course Of Treatment: This patient is a 57 year old M presenting to [facility] with a chief complaint of intermittent chest tightness under left breast radiating throughout left chest that began one week ago. Patient denies history of HTN and hypercholesterolemia, but hospital records indicate that this history is positive. Physical Exam Findings: Nml. Aspirin not given as patient is allergic to Ibuprofen. An EKG at 1356 reveals normal sinus rhythm at 64 BPM with nml AV/ IV CT, nml QTc, and left axis -18. No change from prior EKG taken on 04/19/2017. CXR reveals, per radiologist, no evidence for acute disease. Chest/Thorax CTA reveals, per radiologist, 1. Slightly limited study. No evidence for pulmonary embolism. 2. Stable left upper lobe pulmonary nodule. Bloodwork and UA obtained. Troponin is negative. D-dimer is greater than 600, so CTA is done to evaluate for possible PE. In the ED course the patient was given contrast and Duoneb with improvement. Pt attributes his symptoms to an upper respiratory infection. There is no PE on CTA. Pt has a stable left upper lung nodule when compared with a study from 2007 (ten years ago). Pt's week long hx of chest pain , negative troponin and EKG without acute changes make ACS unlikely, however pt has risk factors of HTN and hyperlipidemia, and has never had a stress test by his report. Pt is advised to follow up with Dr. Goss in the am and get scheduled for a stress test and further evaluation JABIER. Pt is advised he may continue to use his inhaler. No antibioitics necessary at this time, as no pneumonia on CT, no fever and pt is a nonsmoker. Patient will be discharged with follow up from PCP. The patient is agreeable with this plan. - Chest Pain Differential Diagnosis/HQI/PQRI: Acute NM, ACS, Angina, Chest Wall, Lower Respiratory Infection, Pulmonary Embolism, Other: - URI, bronchospasm - Diagnoses Provider Diagnoses: Chest pain, Elevated d-dimer, Upper respiratory infection, Pulmonary nodule seen on imaging study Discharge - Sign-Out/Discharge Documenting (check all that apply): Patient Departure - Discharge home - Discharge Plan Condition: Stable Disposition: HOME Patient Education Materials: Chest Pain (ED) Referrals: Oliver Goss MD [Primary Care Provider] - 1 Day Additional Instructions: Return to the ER if you have new or worsening symptoms. - Billing Disposition and Condition Condition: STABLE Disposition: Home - Attestation Statements Document Initiated by Scribe: Yes Documenting Scribe: Grace Guido Provider For Whom Scribe is Documenting (Include Credential): Dr. Queta Brown MD Scribe Attestation: IGrace, scribed for Dr. Queta Brown MD on 04/10/18 at 0151. Scribe Documentation Reviewed: Yes Provider Attestation: The documentation as recorded by the scribe, Grace Guido accurately reflects the service I personally performed and the decisions made by me, Dr. Queta Bronw MD
[2018-04-09] MEDS ORDERED: Albuterol/Ipratropium NEB.SOL* Albuterol 2.5 MG/Ipratropium 0.5 MG 3 ML INH ONE (14:38)
[2018-04-09 14:44] LABS: EGFR Non-African American 88.1 (>60)
[2018-04-09 14:46] LABS: INR 1.01 (0.77-1.02)
--- NOTE | 2018-04-09 14:48 | RAD ---
INDICATION: Chest pain. COMPARISON: Comparison is made with a prior study from June 13, 2017. TECHNIQUE: A portable view of the chest was obtained. FINDINGS: Cardiac and mediastinal contours appear to be within normal limits. The lungs are clear. No pleural effusion is seen. The patient is status post right shoulder arthroplasty. IMPRESSION: NO EVIDENCE FOR ACUTE DISEASE.
[2018-04-09] MEDS ORDERED: Iohexol 350* (CONTRAST) 500 ML MDV IV ONE (15:19)
[2018-04-09 15:46] LABS: Urine Appearance Clear; Urine Blood Negative (Negative); Urine Color Yellow; Urine Ketones Negative (Negative); Urine Protein Negative (Negative); Urine Urobilinogen Negative (Negative)
--- NOTE | 2018-04-09 15:58 | RAD ---
INDICATION: Chest pain, shortness of breath and elevated d-dimer. COMPARISON: Comparison is made with a prior CT angiogram of the chest from December 04, 2007 and a prior chest x-ray study from April 09, 2018. TECHNIQUE: A CT angiogram of the chest was performed with intravenous following intravenous injection of 78 ml of Omnipaque 350 nonionic contrast. Contiguous axial sections were obtained from the lung apices through the lung bases. Images were reconstructed in the coronal and sagittal planes. FINDINGS: PULMONARY ARTERIES: The exam is slightly limited due to streak and motion artifact. No intraluminal filling defect or pulmonary embolism is seen. HEART: The heart is within normal limits in size. No pericardial effusion is present. THORACIC AORTA: The thoracic aorta is normal in caliber and demonstrates homogeneous contrast opacification. LUNGS: There is mild dependent bilateral lower lobe subsegmental atelectasis. There is a 5 mm pulmonary nodule present in the left upper lobe located toward the lung base best seen on axial image #38 of 74 and unchanged from the prior study. No pleural effusion is present. MEDIASTINUM: No significant enlarged mediastinal or hilar lymph nodes are seen. ABDOMEN: No acute findings are seen on the visualized portion of the upper abdomen. BONES: No significant focal osseous abnormality is seen. IMPRESSION: 1. SLIGHTLY LIMITED STUDY, NO EVIDENCE FOR PULMONARY EMBOLISM. 2. STABLE LEFT UPPER LOBE PULMONARY NODULE.
[2018-04-09 16:22] VITALS: BP 129/83
== END 2018-04-09 16:20 | disposition home or self-care (01) ==
LOC: ED 13:51
DX: R07.89 Other chest pain (principal); R79.1 Abnormal coagulation profile; J06.9 Acute upper respiratory infection, unspecified; R91.1 Solitary pulmonary nodule; R06.02 Shortness of breath; R42 Dizziness and giddiness; J44.9 Chronic obstructive pulmonary disease, unspecified; Z96.653 Presence of artificial knee joint, bilateral; Z96.611 Presence of right artificial shoulder joint; Z88.6 Allergy status to analgesic agent
CPT/HCPCS: 36415; 71045; 71275; 80053; 81003; 82550; 82553; 83605; 83735; 83880; 84436; 84443; 84484; 85025; 85379; 85610; 85730; 93005; 99283; A9270-GY; Q9967

== ENCOUNTER 2018-08-09 07:30 | Inpatient (IN) | payer MEDICARE, MEDICAID ==
--- NOTE | 2018-07-31 09:38 | HP ---
PREOPERATIVE HISTORY AND PHYSICAL: DATE OF ADMISSION/SURGERY: 08/16/18 ATTENDING SURGEON: Dr. Marcelina Navas.* (DICTATED BY CELIO JIMENEZ) PROCEDURE: Right total shoulder reverse. CHIEF COMPLAINT: Right shoulder pain. HISTORY OF PRESENT ILLNESS: Prabhjot is a 58-year-old male who presents to the clinic for right shoulder pain due to glenohumeral joint osteoarthritis and rotator cuff tear. He has failed conservative measures; therefore, agreed to undergo a right total shoulder reverse with Dr. Navas on 08/16/18. PAST MEDICAL HISTORY: Asthma, hypertension, high cholesterol, BPH, and seasonal allergies. PAST SURGICAL HISTORY: Bilateral knee surgeries and 4 shoulder scopes on the right side as well as left shoulder arthroscopy. Patient denies prior complications with anesthesia. MEDICATIONS: 1. Diazepam 2 mg 1 to 2 tabs 30 minutes prior to procedure. 2. Voltaren 1% 2 g to affected area 4 times a day. 3. Albuterol 90 mcg per ACT 2 puffs 4 times a day as needed. 4. Advair Diskus 250/50 one puff twice a day. 5. Flomax 0.4 mg 1 by mouth daily. 6. Singulair 10 mg 1 by mouth daily. 7. Lipitor 40 mg 1 by mouth at night. 8. Morphine sulfate 15 mg twice a day. 9. Trazodone 100 mg. 10. Metoprolol 50 mg once daily. 11. Multivitamin Adult 50+ one by mouth once a day. ALLERGIES: MOTRIN and NSAIDS. FAMILY HISTORY: Denies pertinent family history. SOCIAL HISTORY: He denies tobacco, illegal drug use, or alcohol consumption. REVIEW OF SYSTEMS: A 14-point review of systems was reviewed with the patient. Positive for current complaint; otherwise, negative. Denies fever, chills, chest pain, or shortness of breath, history of DVT, history of bleeding disorder. Denies history of pulmonary embolism. PHYSICAL EXAMINATION GENERAL: A 58-year-old well-developed, well-nourished male, in no acute distress. VITAL SIGNS: Height 70, weight 220, blood pressure 130/78, respiratory rate 18 , BMI 31.6. HEENT: Normocephalic, atraumatic. PERRLA. Throat clear. NECK: Supple. PULMONARY: Lungs are clear to auscultation bilaterally. No wheezing, rhonchi, or rales. CARDIO: Regular rate and rhythm. S1, S2. No murmurs, gallops, or rubs. No edema. ABDOMEN: Positive bowel sounds. Soft, nontender. NEURO: Alert and oriented x3. Cranial nerves grossly intact. MUSCULOSKELETAL: Right upper extremity: Skin is intact. No warmth or erythema. Forward flexion 90, abduction to 80, external rotation to 30. Full range of motion of the elbow, wrist, and hand; +4/5 strength to rotator cuff testing. Well-healed surgical incision. Positive impingement, Speed, Marcelino, [place]er, [place]. His shoulder is easily subluxable; +2 radial pulse. Sensation intact to light touch distally. DIAGNOSTIC STUDIES: CT reveals wear of the glenoid and superior migration of the humeral head with significant wear of the acromion. IMPRESSION: Right shoulder glenohumeral joint osteoarthritis and rotator cuff tear. PLAN: Patient is scheduled to undergo a right total shoulder reverse with Dr. Navas on 08/16/18. This is pending primary care clearance. He is to see his PCP on 08/03/18. Oxycodone will be used for postop pain management. He will follow up 10 to 14 days postoperative for followup and suture removal. CELIO JIMENEZ [id number]/[facility] #: [id number] [id number]
[2018-08-15] MEDS ORDERED: Buffered Lidocaine 1% SYRIN* 1 ML/SYRINGE INTRADERM ONE (14:35)
[2018-08-16] MEDS ORDERED: Lactated Ringers 1000 ML Bag* 1,000 ML IV SCH (06:00)
[2018-08-16] MEDS ORDERED: Gabapentin CAP(*) 100 MG PO ONE (06:00)
[2018-08-16] MEDS ORDERED: Famotidine IV* 10 MG/ML 2 ML (20 mg) IV ONE (06:00)
[2018-08-31] MEDS ORDERED: Buffered Lidocaine 1% SYRIN* 1 ML/SYRINGE INTRADERM ONE (14:31)
[2018-09-01] MEDS ORDERED: Lactated Ringers 1000 ML Bag* 1,000 ML IV SCH ×2 (06:00→16:00)
[2018-09-01] MEDS ORDERED: Rocuronium* 10 MG/ML VIAL ONE ×2 (11:03→14:22)
[2018-09-01] MEDS ORDERED: Lidocaine 2% PF * 5 ML VIAL ONE ×4 (11:03→15:07)
[2018-09-01] MEDS ORDERED: Propofol* 10 MG/ML 20 ML BTL ONE (11:03)
[2018-09-01] MEDS ORDERED: ceFAZolin 2 GM in NS PREMIX(*) 2 GM/100 ML BAG IVPB ONE (11:05)
[2018-09-01] MEDS ORDERED: fentaNYL* 50 MCG/ML 2 ML VIAL (100 MCG VIAL) ONE (11:05)
[2018-09-01] MEDS ORDERED: Buffered Lidocaine 1% SYRIN* 1 ML/SYRINGE INTRADERM ONE (11:05)
[2018-09-01] MEDS ORDERED: Midazolam* 1 MG/ML 2 ML VIAL (2 MG) ONE (11:05)
[2018-09-01] MEDS ORDERED: Dexmedetomidine* 200 MCG/2 ML 2 ML VIAL ONE (11:06)
[2018-09-01] MEDS ORDERED: ROPIVACAINE 5 MG/ML 30 ML BTL (0.5%) ONE (11:06)
[2018-09-01] MEDS ORDERED: EPHEDrine (Pressors)* 50 MG/ML VIAL ONE ×2 (12:56→13:15)
[2018-09-01] MEDS ORDERED: Metoclopramide IV* 5 MG/ML 2 ML VIAL ONE (12:59)
[2018-09-01] MEDS ORDERED: Ondansetron INJ* 2 MG/ML VIAL ONE (12:59)
[2018-09-01] MEDS ORDERED: Dexamethasone IV* 4 MG/ML 1 ML (4 MG) ONE (12:59)
[2018-09-01] MEDS ORDERED: KETAMINE HCL* 50 MG/ML 10 ML VIAL ONE (13:28)
[2018-09-01] MEDS ORDERED: Phenylephrine 10 MG/ML VIAL* 1 ML VIAL ONE (13:41)
[2018-09-01] MEDS ORDERED: Atropine 1MG/ML INJ* 1 ML VIAL ONE (14:16)
[2018-09-01] MEDS ORDERED: HYDROmorphone INJ1* 1 MG/ML SYRINGE IV PRN (14:18)
[2018-09-01] MEDS ORDERED: oxyCODONE TAB* 5 MG TAB PO PRN ×2 (14:18→15:35)
[2018-09-01] MEDS ORDERED: DiMENhydriNATE IV* 50 MG/ML VIAL IV PUSH PRN (14:18)
[2018-09-01] MEDS ORDERED: Naloxone* 0.4 MG/ML 1 ML VIAL IV PRN (14:18)
[2018-09-01] MEDS ORDERED: Vancomycin(*) 1,000 MG VIAL ONE (14:45)
[2018-09-01] MEDS ORDERED: Acetaminophen IV 1GM/100ML * 100 ML ONE (14:47)
[2018-09-01] MEDS ORDERED: Ropivacaine* 2 MG/ML 20 ML VIAL (0.2%) ONE (14:50)
[2018-09-01] MEDS ORDERED: Sugammadex * 200 MG/2 ML VIAL IV PUSH ONE (14:51)
[2018-09-01] MEDS ORDERED: HYDROmorphone INJ1* 1 MG/ML SYRINGE ONE (14:53)
[2018-09-01] MEDS ORDERED: diPHENhydraMINE PO* 25 MG PO PRN (15:35)
[2018-09-01] MEDS ORDERED: traMADol TAB* 50 MG PO PRN (15:35)
[2018-09-01] MEDS ORDERED: Morphine INJ* 2 MG/ML 1 ML SYRINGE (TWO MG - NEW SYRINGE VERSION) IV PRN (15:35)
[2018-09-01] MEDS ORDERED: Ondansetron ODT TAB* 4 MG PO PRN (15:35)
[2018-09-01] MEDS ORDERED: Ondansetron INJ* 2 MG/ML VIAL IV PRN (15:35)
[2018-09-01] MEDS ORDERED: Magnesium Hydroxide LIQ* 30 ML UDC PO PRN (15:35)
[2018-09-01] MEDS ORDERED: Polyethylene Glycol 3350* 17 GM PACKET PO PRN (15:35)
[2018-09-01] MEDS ORDERED: Cyclobenzaprine TAB* 10 MG PO PRN (15:35)
[2018-09-01] MEDS ORDERED: Bisacodyl SUPP* 10 MG SUPP PR PRN (15:35)
[2018-09-01] MEDS ORDERED: oxyCODONE/Acetamin 5/325 MG* TAB PO PRN (15:35)
[2018-09-01] MEDS ORDERED: diPHENhydraMINE IV* 50 MG/ML 1 ml VIAL (BENADRYL) IV PRN (15:35)
[2018-09-01] MEDS ORDERED: ceFAZolin 1 GM ADVAN(*) 1 GM in NS 0.9% 50 ML* 50 ML IVPB SCH (16:00)
[2018-09-01] MEDS: Docusate CAP* 100 MG PO SCH (20:37)
[2018-09-01] MEDS: Gabapentin CAP(*) 100 MG PO SCH (20:38)
[2018-09-01] MEDS: Albuterol HFA INHALER* 8 gm MDI INH PRN (20:38)
[2018-09-01] MEDS: Morphine TAB Extended Release (*) 15 MG TAB.ER PO SCH (20:38)
[2018-09-01] MEDS: Mometasone/Formoter 100/5 MDI INH SCH (20:39)
[2018-09-01] MEDS: ceFAZolin 1 GM in Dextrose (*) 1 GM/50 ML BAG IVPB SCH (20:40)
[2018-09-01] MEDS ORDERED: traZODone TAB* 100 MG PO SCH (21:00)
[2018-09-01] MEDS: Acetaminophen TAB* 325 MG PO SCH (21:34)
[2018-09-01] MEDS: Albuterol 2.5 MG/3 ML NEB.SOL* (0.083%) INH SCH (23:20)
--- NOTE | 2018-09-02 01:35 | OP ---
OPERATIVE REPORT: DATE OF OPERATION: 09/01/18 DATE OF : 60 SURGEON: Marcelina Navas MD. BUSINESS JOB TITLES: CELIO Donnelly, and Liliya Burciaga. Assistants were needed for the entirety of the case to help with positioning, retraction, and were ut ilized throughout all portions of the case. ANESTHESIOLOGIST: Dr. Jarquin. ANESTHESIA: General interscalene block. PRE-OP DIAGNOSES: Right shoulder rotator cuff arthropathy with failed hemiarthroplasty. POST-OP DIAGNOSES: Right shoulder rotator cuff arthropathy with failed hemiarthroplasty. OPERATIVE PROCEDURES: Right shoulder open revision arthroplasty with conversion to reverse, open bio psy, removal of hardware and deep implants. COMPLICATIONS: None. ESTIMATED BLOOD LOSS: 200 cc. OUTPUT: Drain x1. CULTURES: Pending. Stat Gram stain was negative. Final cultures pending including P. acnes pending . IMPLANTS USED: AEQUALIS Reversed II size 29 x 35 threaded post baseplate with 3 nonlocking screws in a 42 centered glenosphere. The Equinoxe reverse shoulder humeral adapter tray +0 with a 42 mm +0 hu meral liner. INDICATIONS: Prabhjot Andujar is an unfortunate 58-year-old male, who has a very difficult shoulder issue including multiple surgeries including rotator cuff repairs and then a hemiarthroplasty and then a valente perior capsule reconstruction over the hemiarthroplasty, who has had persistent issues with instabili ty and pain in his shoulder. He has now glenoid wear and he has elected to proceed with surgical sydnee atment, although we tried to delay surgery till he was at least 60 or 65 years old. The patient has significant pain with basic activities. He keeps his arm in a sling. He has significant difficulty functioning. After extensive discussion of the risks and benefits of surgery including risk of expla nt, risks of infection; abandoning surgery; failure of the hardware, dislocation, fracture; need for further surgery, risks of anesthesia, scarring, stiffness, incomplete relief of symptoms, he has elec marisol to proceed. He underwent medical risk optimization. DESCRIPTION OF PROCEDURE: The patient was greeted in the preoperative area by the attending surgeon. The correct extremity was marked and consent was confirmed. The patient underwent interscalene nerv e block by the anesthesiologist, after which he was brought back to the operating suite. He was plac ed in the supine position on the operating table. He then underwent general anesthesia with endotrac heal intubation, after which he was placed in a lazy beach chair position with a bump under his scapu la. His right shoulder was then prepped and draped in usual sterile fashion beginning with chlorhexi dine soap, scrub, and alcohol wipe and a final prep with ChloraPrep. After appropriate surgical pause indicating site, side, procedure, and administration of antibiotics, a deltopectoral incision was made. Soft tissues were carefully dissected and the previous scar was identified and gone through. Careful dissection was maintained. Hemostasis was maintained at all kaleigh es using the electrocautery device. The deltoid was identified. The deltopec interval was scarred. He has had numerous surgeries and the cephalic vein was not easily identified. Once the interval wa s identified proximally, the dissection was taken to expose the anterior aspect of the humerus. The coracoid was identified. The CA ligament was released as well as scar tissue posterior to that. The conjoint tendon was identified and protected throughout the case. The deltoid was carefully mobiliz ed as well and the subdeltoid adhesions were released using a curved Banks and a Padilla to allow for mob ilization of the humerus. The adhesions were carefully released and there were sutures that were cyndi ntified, deep buried sutures that were apparently Arthrex sutures that were attached to a graft, angel wade was from his previous superior capsule reconstruction. At this point, fluid and debris were then s ent for a stat Gram stain. There was no evidence of purulence that was apparent. The anterior aspec t of the shoulder was also exposed with care to stay on the bone and not damage the nerves and vessel s. The implant was then starting to be visible. The pec was also released, or what was left of the scarred pec, to allow for it to be easier to mobilize the shoulder. Once the previous graft was lakhwinder be and the head was then carefully exposed, adhesions were removed and the shoulder was gently mobil ized. Then, a 2-pronged fork was used to loosen the CTA head, which was from the [employer] set. Once this was removed in its entirety, there was a small amount of tissue in between the head and the mec hanism of the stem. This was then sent for a deep Gram stain and culture and also found to be negati ve. Then, the locking mechanism to the stem was removed as well as the adaptor guide. These were th en placed on the back table and not used again. A protection plate was placed and attention was dire cted to the glenoid. The glenoid was exposed. This is again a [place] glenoid and had not had any hardware placed on this. The posterior retractor was placed and the soft tissues and labrum were removed from superior, ante roposteriorly, and then with tension on the sutures inferiorly. There was no subscab available to re tract. Once this was exposed and the inferior aspect of the glenoid was identified, the Panravennier Reve rsed II system was used and guidewire was placed inferiorly in the glenoid with excellent purchase. The size 29 mm baseplate reamer was then used to ream the glenoid to good healing bone. The size 36 mm and then the 42 mm footprint reamer was reamed by hand. The excess debris was then removed. The wounds were then irrigated. At this point, the 6.5 mm drill bit was then used to drill bicortically. The depth was measured to be about 29 mm and a size 35 mm threaded baseplate was chosen. The screw hole was then tapped. The final implant was then checked and brought into the field and placed with excellent purchase. Three interlocking screws were then placed - superior, inferior, and anteriorly with excellent purchase. The glenosphere was then brought into the field. The size 42 head was the n placed, impacted, and then secured with the set screw. At this point, attention was directed to th e head. The head was brought back to the groove, the protection plate was removed, and attention was directed to the stem. Any loose debris was removed from the stem. At this point, the trial mechanism from [employer] was then chosen as this is a convertible system. The Reversed plate and +0 poly were then nicole diony and secured. Then, the shoulder was gently reduced. It was found to have the appropriate amount of difficulty with reduction and it was taken through a range of motion with forward flexion to about 140, abduction to 90, external rotation to about 55, internal rotation to the posterior hip with fatimah ropriate amount of shuck. It was found to be acceptable. His preoperative motion was also assessed prior to surgery and he was found to have forward flexion to about 140, abduction 90, external rotati on to about 90 due to no subscap. The final implants were then chosen. The trial was removed and th e final implants were then brought to the field for the humeral side. The humeral adapter tray was t hen placed with a set screw, which was placed and secured till the torque screw the head broke off; w hich was as it was supposed to happen, and then the final poly was then placed in position and impact ed in position. The shoulder was then reduced and found to be stable. The wounds were then copiousl y irrigated with sterile saline and the shoulder was taken through a range of motion and found to hav e the same range of motion as the trial. The wounds were copiously irrigated. An intraarticular drai n was then placed. Then, the deltopectoral interval began to be closed with #5 Ethibond sutures. Powd ered vanco was placed both on the implant as well as superficially on the wound to prevent infection. The skin was closed in layers with 3-0 Monocryl in a deep and running fashion. Sterile dressings w ere applied as well as a Cryo/Cuff and UltraSling. He was awoken from anesthesia and transferred to the PACU in stable condition. POSTOPERATIVE PLAN: He will be nonweightbearing. He will wear the sling for 6 weeks. He will be ad mitted for at least 24 hours for postoperative antibiotics. He will be in hospital and we will follow him in the hospital. He will be discharged on postop day #1 most likely after the drain is discharg ed. I will see the patient back in 10 to 14 days. [id number]/[facility] #: [id number]
[2018-09-02] MEDS: oxyCODONE/Acetamin 5/325 MG* TAB PO PRN ×2 (03:08→11:38)
[2018-09-02] MEDS: Albuterol 2.5 MG/3 ML NEB.SOL* (0.083%) INH SCH ×2 (03:14→08:32)
[2018-09-02] MEDS: ceFAZolin 1 GM in Dextrose (*) 1 GM/50 ML BAG IVPB SCH ×2 (04:50→12:15)
[2018-09-02] MEDS: Acetaminophen TAB* 325 MG PO SCH ×2 (05:51→13:10)
[2018-09-02 05:57] LABS: Hematocrit 36 % (36-46); Hemoglobin 12.2 g/dL (14.0-18.0); Mean Platelet Volume 7.9 fL (7.4-10.4); Platelet Count 232 10^3/uL (150-450)
[2018-09-02 06:11] LABS: Calcium 8.6 mg/dL (8.6-10.3); EGFR African American 129.4 (>60); Potassium 3.8 mmol/L (3.5-5.0)
--- NOTE | 2018-09-02 07:31 | PN ---
Progress Note - Progress Note Date of Service: 09/02/18 Note: Pt seen and examined. Doing ok. Block still working. Sling in place. Drain in place. No complaints Temp Pulse Resp BP Pulse Ox 97.9 F 65 16 91/50 92 09/02/18 03:40 09/02/18 03:40 09/02/18 05:11 09/02/18 03:40 09/02/18 03:[address] Drain in place. SILT grossly distally. Able to flex/ext hand slight. Brisk cap refill. Warm and well perfused. Xrays reviewed and acceptable Laboratory Results - last 24 hr 09/01/18 09/02/18 09/02/18 11:20 05:46 05:46 Hgb 12.2 L Hct 36 Plt Count 232 MPV 7.9 Sodium 139 Potassium 3.8 Chloride 108 Carbon Dioxide 25 Anion Gap 6 BUN 12 Creatinine 0.75 Est GFR ( Amer) 129.4 Est GFR (Non-Af Amer) 107.0 BUN/Creatinine Ratio 16.0 Glucose 117 H Calcium 8.6 Blood Type O Negative Antibody Screen Negative A/P POD#1 from R shoulder revision with conversion to reverse arthroplasty gram stain negative. Cultures pending analgesia d/c drain today dispo home today if pain controlled. f/u 10-14 days in my office.
[2018-09-02] MEDS: Albuterol HFA INHALER* 8 gm MDI INH PRN ×2 (08:15→12:17)
[2018-09-02] MEDS: Mometasone/Formoter 100/5 MDI INH SCH (08:17)
[2018-09-02] MEDS: Morphine TAB Extended Release (*) 15 MG TAB.ER PO SCH ×2 (08:19→13:09)
[2018-09-02] MEDS: Docusate CAP* 100 MG PO SCH (08:19)
[2018-09-02] MEDS: Gabapentin CAP(*) 100 MG PO SCH ×2 (08:20→13:09)
[2018-09-02 08:27] VITALS: BP 115/65
[2018-09-02] MEDS ORDERED: Albuterol 2.5 MG/3 ML NEB.SOL* (0.083%) INH PRN (08:35)
[2018-09-02] MEDS ORDERED: Montelukast Sodium TAB* 10 MG PO SCH (09:00)
[2018-09-02] MEDS ORDERED: Metoprolol Succinate XL TAB* 50 MG PO SCH (09:00)
[2018-09-02] MEDS ORDERED: Tamsulosin CAP* 0.4 MG PO SCH (09:00)
[2018-09-02] MEDS ORDERED: Enoxaparin(*) 40 MG/0.4 ML SYR SUBCUT SCH (12:00)
--- NOTE | 2018-09-03 22:26 | DS ---
DISCHARGE SUMMARY: DATE OF ADMISSION: 09/01/18 DATE OF DISCHARGE: 09/02/18 ATTENDING PHYSICIAN: Dr. Marcelina Navas.* (DICTATED BY CELIO BOURNE) PRINCIPAL DIAGNOSIS: Right shoulder osteoarthritis. SECONDARY DIAGNOSES: 1. Asthma. 2. Hypertension. 3. High cholesterol. 4. BPH. 5. Seasonal allergies. PRINCIPAL PROCEDURE: Right total shoulder reverse. REASON FOR HOSPITALIZATION: Prabhjot is a 58-year-old male who had persistent right shoulder pain due to a glenohumeral joint osteoarthritis and rotator cuff tear. He had failed conservative treatment measures and had elected to proceed with a right total shoulder reverse with Dr. Navas on 09/01/18. HOSPITAL COURSE: Prabhjot was admitted to [facility] on 09/01/18 for anticipated right shoulder surgery. He underwent right shoulder open revision arthroplasty with conversion to reverse open biopsy removal of hardware and deep implants on 09/01/[address] Navas. He underwent surgery without any complications. He was transferred to the recovery room and subsequently the surgical stay unit in stable condition. His pain was well-controlled throughout the hospital course. He has had a regional block. His vital signs remained stable throughout the hospital course including remaining afebrile. He had worked with physical therapy and occupational therapy. His drain was discontinued on the day of discharge. He was taking the Lovenox 40 mg subcu every 24 hours for DVT prophylaxis and he had had no other events or complications during his hospital stay. He was discharged on 09/02/18 to home in a stable condition. DISCHARGE INSTRUCTIONS: Wound care. He will get a shower on postop day #3. No bathing, swimming, or submerging wound. Use gentle soap, pat dry, cover with gauze, Morales wrap or tape. Call orthopedic office for increased drainage or redness, increased pain or fever. Go to the ER with shortness of breath or chest pain. Diet: Regular diet. Increase fluids and fiber to prevent constipation. Continue to use stool softeners. Call office if no bowel motion within 48 hours. Continue physical therapy and occupational therapy exercises as shown. Visiting home nurse to do wound checks. Pain control with Percocet 5 /325 of 1 to 2 tablets by mouth every 4 to 6 hours as needed for pain. Maximum daily dose of 10 tabs per day. Antibiotics as required as prior to any dental work. Follow up with Dr. Navas within 10 to 14 days. Call for an appointment. Call our office if any questions or concerns at [phone]. CELIO BOURNE [id number]/[facility] #: [id number] LOI
== END 2018-09-02 13:40 | disposition home or self-care (01) | DRG 483 ==
LOC: AA 08-16 08:15 → UNDOADMIN 08-16 08:15 → AA 09-01 10:19 → SSU 09-01 18:11
PROVIDERS: ADMIT Orthopaedic Surgery; ATTEND Orthopaedic Surgery
PROC: 0RPJ0JZ Removal of Synthetic Substitute from Right Shoulder Joint, Open Approach (ICD-10-PCS; 2018-09-01)
PROC: 0RRJ00Z Replacement of Right Shoulder Joint with Reverse Ball and Socket Synthetic Substitute, Open Approach (ICD-10-PCS; principal; 2018-09-01 12:00)
DX: M19.011 Primary osteoarthritis, right shoulder (principal); I10 Essential (primary) hypertension; E78.00 Pure hypercholesterolemia, unspecified; N40.0 Benign prostatic hyperplasia without lower urinary tract symptoms; M75.101 Unspecified rotator cuff tear or rupture of right shoulder, not specified as traumatic; Z96.653 Presence of artificial knee joint, bilateral; J45.998 Other asthma; Z79.01 Long term (current) use of anticoagulants; Z88.8 Allergy status to other drugs, medicaments and biological substances
CPT/HCPCS: 36415; 80048; 85014; 85018; 85049; 86850; 86900; 86901; 87070; 87073; 87205; 88300; A9270-GY; C1713; C1776; G8987-GO-CJ; G8988-GO-CJ; G8989-GO-CJ; J0461; J0690; J1100; J1170; J1650; J2250; J2405; J2704; J2765; J2795; J3010; J3370

== ENCOUNTER 2018-12-25 12:14 | Emergency (ER) | payer MEDICAID, MEDICARE, OTHER ==
[2018-12-25] MEDS ORDERED: Fluorescein Sodium TOPICAL* 1 MG TEST STRIP OPHTHALMIC ONE (13:31)
[2018-12-25 13:51] VITALS: BP 130/76
--- NOTE | 2018-12-25 14:03 | ED ---
Throat Pain/Nasal Congestion - HPI Summary HPI Summary: Patient is a 58-year-old male presenting to the ED with concern for eye infection/pain. 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 He believes his glasses hit the eye and he complained of some blurry vision prior to arrival. He denies any tearing from the eye or blurry vision currently. He denies any headache. Denies any photophobia. He was able to dislodge the small foreign from the right cheek near the eye and states he came to the ED for "concern for infection" due to the closeness of the thorn into the eye. He denies any known foreign body going into the eye. - History of Current Complaint Chief Complaint: EDEyeProblem Time Seen by Provider: 12/25/18 13:06 Hx Obtained From: Patient Onset/Duration: Sudden Onset Severity: Moderate Associated Signs And Symptoms: Positive: Negative - Allergies/Home Medications Allergies/Adverse Reactions: Allergies Allergy/AdvReac Type Severity Reaction Status Date / Time NSAIDS (Non-Steroidal Allergy Severe Swelling Verified 12/25/18 12:46 Anti-Inflamma Of Face,Lips,& Throat PMH/Surg Hx/FS Hx/Imm Hx Previously Healthy: Yes Endocrine/Hematology History: Denies: Hx Diabetes, Hx Thyroid Disease Cardiovascular History: Reports: Hx Hypertension Denies: Hx Congestive Heart Failure, Hx Pacemaker/ICD, Other Cardiovascular Problems/Disorders Respiratory History: Reports: Hx Asthma, Hx Chronic Obstructive Pulmonary Disease (COPD) Denies: Other Respiratory Problems/Disorders GI History: Denies: Hx Ulcer, Other GI Disorders History: Reports: Other Problems/Disorders - Enlarged prostate Denies: Hx Renal Disease Musculoskeletal History: Reports: Hx Arthritis - ALL OVER, Other Musculoskeletal History - see surgical hx Sensory History: Reports: Hx Contacts or Glasses Denies: Hx Cataracts, Hx Glaucoma, Hx Hearing Aid Opthamlomology History: Reports: Hx Contacts or Glasses Denies: Hx Cataracts, Hx Glaucoma Neurological History: Denies: Hx Headaches, Hx Seizures, Other Neuro Impairments/Disorders Psychiatric History: Reports: Hx Depression - NO MEDS, DEPRESSION FROM CHRONIC PAIN, Hx Inpatient Treatment, Hx Community Mental Health Tx Denies: Hx Eating Disorder, Hx Panic Disorder, Hx of Violent Episodes Against Others, Other Psychiatric Issues/Disorders - Surgical History Surgery Procedure, Year, and Place: BILATERAL knees replaced, tonsils, R shoulder replacement 01/29/16, Left shoulder surgery Hx Anesthesia Reactions: No - Immunization History Hx Pertussis Vaccination: No Immunizations Up to Date: Yes Infectious Disease History: No Infectious Disease History: Denies: Hx Clostridium Difficile, Hx Hepatitis, Hx Human Immunodeficiency Virus (HIV), Hx Shingles, Hx Tuberculosis, Hx Known/Suspected VRE, Hx Known/ Suspected VRSA, History Other Infectious Disease, Traveled Outside the [place] in Last 30 Days - Family History Known Family History: Positive: Other - Patient is unsure of family history as he did not grow up with parents Negative: Hypertension, Diabetes, Blood Disorder - Social History Occupation: Employed Full-time Lives: With Family Alcohol Use: None Alcohol Amount: QUIT 2004 Hx Substance Use: No Substance Use Type: Reports: None Hx Tobacco Use: No Smoking Status (MU): Never Smoked Tobacco Have You Smoked in the Last Year: No Review of Systems Constitutional: Negative Negative: Fever, Chills, Fatigue, Skin Diaphoresis Positive: Blurred Vision Negative: Palpitations, Chest Pain Negative: Shortness Of Breath, Cough Genitourinary: Negative Positive: no symptoms reported, see HPI Negative: Arthralgia, Myalgia Skin: Negative All Other Systems Reviewed And Are Negative: Yes Physical Exam Triage Information Reviewed: Yes Vital Signs On Initial Exam: Initial Vitals Temp Pulse Resp BP Pulse Ox 98.7 F 62 18 134/91 96 12/25/18 12:24 12/25/18 12:24 12/25/18 12:24 12/25/18 12:24 12/25/18 12:24 Vital Signs Reviewed: Yes Appearance: Positive: Well-Appearing, Well-Nourished Skin: Positive: Skin Color Reflects Adequate Perfusion Head/Face: Positive: Normal Head/Face Inspection Eyes: Positive: EOMI, Conjunctiva Clear, Other: - no blurry vision currently per pt Neck: Positive: Supple, No Lymphadenopathy Respiratory/Lung Sounds: Positive: Clear to Auscultation, Breath Sounds Present Cardiovascular: Positive: RRR, Pulses are Symmetrical in both Upper and Lower Extremities Musculoskeletal: Positive: Strength/ROM Intact Neurological: Positive: Speech Normal Psychiatric: Positive: Affect/Mood Appropriate AVPU Assessment: Alert Diagnostics - Vital Signs Vital Signs Temp Pulse Resp BP Pulse Ox 12/25/18 13:48 98.0 F 72 12 130/76 97 12/25/18 12:24 98.7 F 62 18 134/91 96 - Laboratory Lab Statement: Any lab studies that have been ordered have been reviewed, and results considered in the medical decision making process. EENT Course/Dx - Course Course Of Treatment: Patient is evaluated for right eye trauma. He believes the glasses that he was wearing hit the eye, but denies any known foreign bodies. He states he is seeing well and denies any blurry vision currently, however had this prior to arrival. There are 3 small abrasions to the right cheek without erythema or conjunctival injection or tearing to the right eye. Ful- verenice administered and Wood's lamp used - no evidence of a conjunctival abrasion. No evidence of infection. There does not appear to be evidence of trauma or foreign body to the eye. There is 3 small abrasions to the right side of the eye on the right cheek. Patient denies any photophobia or visual changes at this time. He is encouraged antibiotic ointment over the abrasions. - Diagnoses Provider Diagnoses: Abrasion, Eye contusion Discharge - Sign-Out/Discharge Documenting (check all that apply): Patient Departure Patient Received Moderate/Deep Sedation with Procedure: No - Discharge Plan Condition: Stable Disposition: HOME Forms: *Work Release Referrals: Oliver Goss MD [Primary Care Provider] - Additional Instructions: Off work at this time Antibiotic ointment over the area Ice if the area under the eye swells Ibuprofen 600mg three times daily - Billing Disposition and Condition Condition: STABLE Disposition: Home
== END 2018-12-25 13:48 | disposition home or self-care (01) ==
LOC: ED 12:14
DX: S05.11XA Contusion of eyeball and orbital tissues, right eye, initial encounter (principal); S00.81XA Abrasion of other part of head, initial encounter; W22.8XXA Striking against or struck by other objects, initial encounter; Y92.9 Unspecified place or not applicable; Y99.0 Civilian activity done for income or pay; I10 Essential (primary) hypertension; J44.9 Chronic obstructive pulmonary disease, unspecified; Z88.8 Allergy status to other drugs, medicaments and biological substances
CPT/HCPCS: 99282; A9270-GY

== ENCOUNTER 2019-01-07 08:35 | Emergency (ER) | payer MEDICARE, MEDICAID ==
[2019-01-07 08:50] VITALS: BP 115/72
--- NOTE | 2019-01-07 08:51 | UC ---
General HPI - HPI Summary HPI Summary: Sick since last Tuesday (today is Tuesday). Started as a sore throat. C/o progressively worse cough, wheezing. No GI issues. No rash. Has been using albuterol puffer, but not helpful. + green mucus. No hemoptysis. No hx sz d/o. - History of Current Complaint Chief Complaint: UCGeneralIllness Stated Complaint: COUGH/ THRAOT PAIN Time Seen by Provider: 01/07/19 08:50 Hx Obtained From: Patient Pain Intensity: 6 - Allergy/Home Medications Allergies/Adverse Reactions: Allergies Allergy/AdvReac Type Severity Reaction Status Date / Time NSAIDS (Non-Steroidal Allergy Severe Swelling Verified 01/07/19 08:41 Anti-Inflamma Of Face,Lips,& Throat Home Medications: Home Medications Albuterol HFA INHALER* [Ventolin HFA Inhaler*] 2 puff INH Q4H PRN 01/07/19 [ History Confirmed 01/07/19] PMH/Surg Hx/FS Hx/Imm Hx Previously Healthy: Yes - Surgical History Surgical History: Yes Surgery Procedure, Year, and Place: BILATERAL knees replaced, tonsils, R shoulder replacement 01/29/16, Left shoulder surgery - Family History Known Family History: Positive: Other - Patient is unsure of family history as he did not grow up with parents Negative: Hypertension, Diabetes, Blood Disorder - Social History Alcohol Use: None Alcohol Amount: QUIT 2004 Substance Use Type: None Smoking Status (MU): Never Smoked Tobacco Have You Smoked in the Last Year: No - Immunization History Most Recent Influenza Vaccination: 2016 Most Recent Tetanus Shot: N/A Most Recent Pneumonia Vaccination: unsure Review of Systems All Other Systems Reviewed And Are Negative: Yes Constitutional: Positive: Fatigue Skin: Positive: Negative Eyes: Positive: Negative ENT: Positive: Other - see hpi Respiratory: Positive: Cough Cardiovascular: Positive: Other Gastrointestinal: Positive: Negative Genitourinary: Positive: Negative Motor: Positive: Negative Neurovascular: Positive: Negative Musculoskeletal: Positive: Negative Neurological: Positive: Negative Psychological: Positive: Negative Is Patient Immunocompromised?: No Physical Exam Triage Information Reviewed: Yes Appearance: Well-Nourished - sitting up, conversing easily in full sentances. Looks tired, but NAD Vital Signs: Initial Vital Signs Temp 98.6 F 01/07/19 08:44 Pulse 80 01/07/19 08:44 Resp 20 01/07/19 08:44 BP 115/72 01/07/19 08:44 Pulse Ox 98 01/07/19 08:44 Eye Exam: Normal ENT: Positive: Pharyngeal erythema - mild post redness, uvula midline, no stridor, Nasal congestion, TM dull - TN dull, but large cerumen BL Neck exam: Other - no new c/o. Does have hx djd Respiratory Exam: Other - + course breath sounds. Occas wheeze. + rhonchorus cough. BS equal. Cardiovascular Exam: Normal Cardiovascular: Positive: Brisk Capillary Refill Abdominal Exam: Normal Abdomen Description: Positive: Nontender Musculoskeletal Exam: Other - gait steady. Hx back and neck pain Neurological Exam: Normal - grossly nonfocal Psychological Exam: Normal - conversing easily and appropriately Course/Dx - Course Course Of Treatment: Ears flushed by RN. Better. Neb tx x 1. Reviewed meds / coa / tx plan. Declines cxr. But will seek medical attention for worse / new problems. - Diagnoses Provider Diagnosis: Wheezing, Bronchitis Discharge - Sign-Out/Discharge Documenting (check all that apply): Patient Departure All imaging exams completed and their final reports reviewed: No Studies - Discharge Plan Condition: Stable Disposition: HOME Prescriptions: Albuterol 2.5MG/3ML (0.083%)* [Ventolin 2.5 MG/3 ML NEB.SATISH*] 2.5 mg INH Q6H PRN #25 vial PRN Reason: Wheezing Amoxicillin/Clavulanate TAB* [Augmentin TAB 875*] 875 mg PO BID 10 Days #20 tab guaiFENesin/CODIEN 100MG-10MG* [Robitussin AC 100Mg-10Mg*] 10 ml PO Q6H PRN 5 Days #200 ml MDD 40 PRN Reason: Cough predniSONE TAB* [Deltasone 10 MG TAB*] 10 mg PO DAILY #20 tab Patient Education Materials: Cerumen Impaction (ED), Acute Bronchitis (ED), Bronchospasm (ED) Forms: *Work Release Referrals: Oliver Goss MD [Primary Care Provider] - Additional Instructions: Consider purchasing (or asking your doctor for a prescription) for a nebulizer machine with tubing. Respiratory recheck recommended next week by your primary care physician. Seek medical attention for worse or new problems. Hydrate. Do not take Trazodone at bedtime if you are taking prescription cough medicine ( robitussin with codeine). - Billing Disposition and Condition Condition: STABLE Disposition: Home
[2019-01-07] MEDS ORDERED: Albuterol/Ipratropium NEB.SOL* Albuterol 2.5 MG/Ipratropium 0.5 MG 3 ML INH ONE (09:10)
== END 2019-01-07 09:42 | disposition home or self-care (01) ==
LOC: UCEAST 08:35
DX: R06.2 Wheezing (principal); J40 Bronchitis, not specified as acute or chronic; J02.9 Acute pharyngitis, unspecified; H61.23 Impacted cerumen, bilateral
CPT/HCPCS: 69210; 99213; A9270-GY; G0463

== ENCOUNTER 2023-02-07 06:09 | Observation (INO) ==
[~2023-02-07 06:09] MED LIST changes: -Acetaminophen TAB* 325 MG ONE; -Acetaminophen TAB* 325 MG PO ONE; -Buffered Lidocaine 0.9% SYRIN* 5 ML/SYR SYRINGE INTRADERM ONE; -Buffered Lidocaine 0.9% SYRIN* 5 ML/SYR SYRINGE ONE; +Buffered Lidocaine 1% SYRIN 1 ml INTRADERM ONE; -Bupivacaine 0.25% SDV* 30 ML ONE; -Dexamethasone IV* 4 MG/ML 1 ML (4 MG) IV SLOW PU ONE; -Dexamethasone IV* 4 MG/ML 1 ML (4 MG) ONE; -EPHEDrine (Pressors)* 50 MG/ML VIAL ONE; -Famotidine IV* 10 MG/ML 2 ML (20 mg) IV ONE; -Famotidine IV* 10 MG/ML 2 ML (20 mg) ONE; -Glycopyrrolate IV* 0.2 MG/ML 1 ML VIAL ONE; -HYDROmorphone INJ* 1 MG/ML CARPUJECT SYRINGE ONE; +Lactated Ringers 1000 ml BAG 1,000 ML IV SCH; -Levalbuterol 0.63MG/3ML NEB* UNIT OF USE INH PRN; -Lidocaine 2% PF * 5 ML VIAL ONE; -Lidocaine 2% PF* 10 ML AMP ONE; -Midazolam* 1 MG/ML 2 ML VIAL (2 MG) ONE; -Neostigmine Methylsulfate* 2 MG/2 ML SYRINGE ONE; -PROCHLORPERAZINE INJ 5 MG/ML 2 ML VIAL IV PRN; -Propofol* 10 MG/ML 20 ML BTL IV PUSH ONE; -ROPIVACAINE 5 MG/ML 30 ML BTL (0.5%) ONE; -Rocuronium* 10 MG/ML VIAL ONE; -Scopolamine 1.5 mg* PATCH TRANSDERM PRN; -Scopolomine PATCH Remove* 1 NOTE MISC PATCH OFF ONE; -Sterile Water for Inj* 10 ML ONE; -ceFAZolin 2 GM PREMIX (*) 2 GM/50 ML BAG IVPB ONE; -diPHENhydraMINE IV* 50 MG/ML 1 ml VIAL (BENADRYL) IV PRN; -fentaNYL* 50 MCG/ML 2 ML VIAL (100 MCG VIAL) ONE; -oxyCODONE TAB* 5 MG TAB ONE; -oxyCODONE TAB* 5 MG TAB PO PRN
[2023-02-07] MEDS ORDERED: ceFAZolin 2 GM in NS PREMIX 2 GM/100 ML BAG IVPB ONE (06:56)
[2023-02-07] MEDS ORDERED: Vancomycin 1,000 MG VIAL ONE (06:58)
[2023-02-07] MEDS ORDERED: Rocuronium 50 mg VIAL 10 mg/ml 5 ml VIAL (50 mg) ONE ×2 (07:18→07:19)
[2023-02-07] MEDS ORDERED: Propofol 10 MG/ML 20 ML BTL ONE ×2 (07:18→12:00)
[2023-02-07] MEDS ORDERED: fentaNYL 100 mcg/2 ml 50 MCG/ML VIAL ONE ×2 (07:18→07:42)
[2023-02-07] MEDS ORDERED: Lidocaine 2% PF 5 ML VIAL ONE (07:18)
[2023-02-07] MEDS ORDERED: Midazolam 2 mg/2 ml VIAL 1 mg/ml 2 ml VIAL (2 mg) ONE ×2 (07:18→07:42)
[2023-02-07] MEDS ORDERED: Phenylephrine IV 10 MG/ML 1 ml VIAL ONE (07:21)
[2023-02-07 07:28] LABS: Rapid COVID-19 Molecular Undetected (Undetected)
[2023-02-07] MEDS ORDERED: Bupivacaine 0.5% SDV PF 30ML VIAL ONE (07:42)
[2023-02-07] MEDS ORDERED: Bupivacaine 0.25% SDV PF 10 ML VIAL INJ ONE (07:43)
[2023-02-07] MEDS ORDERED: Ondansetron 4 mg VIAL 2 MG/ML 2 ml VIAL ONE (09:15)
[2023-02-07] MEDS ORDERED: Acetaminophen IV 1 GM/100ML 1,000 MG/100 ML BAG IV ONE (09:15)
[2023-02-07] MEDS ORDERED: Dexamethasone IV 4 MG/ML VIAL 1 ml VIAL ONE (09:15)
[2023-02-07] MEDS ORDERED: Naloxone 0.4 mg VIAL 0.4 mg/ml 1 ml VIAL IV PRN (09:20)
[2023-02-07] MEDS ORDERED: Ondansetron 4 mg VIAL 2 MG/ML 2 ml VIAL IV PRN ×2 (09:20→12:17)
[2023-02-07] MEDS ORDERED: Morphine 4 MG/ML VIAL (1 ml) IV PRN (09:20)
[2023-02-07] MEDS ORDERED: fentaNYL 100 mcg/2 ml 50 MCG/ML VIAL IV PRN (09:20)
[2023-02-07] MEDS ORDERED: Glycopyrrolate IV 0.2 MG/ML 1 ML VIAL ONE (09:32)
[2023-02-07] MEDS ORDERED: Sodium Chloride 0.9% 10 ML ONE (09:33)
[2023-02-07] MEDS ORDERED: Dexmedetomidine 200 mcg/2 ml 2 ml VIAL (200 mcg) ONE (09:46)
[2023-02-07] MEDS ORDERED: Lactulose 30 ml UDC PO PRN (12:17)
[2023-02-07] MEDS ORDERED: Ondansetron ODT 4 mg TAB 4 MG TAB PO PRN (12:17)
[2023-02-07] MEDS ORDERED: Magnesium Hydroxide LIQ 30 ML UDC PO PRN (12:17)
[2023-02-07] MEDS ORDERED: Morphine 2 MG/ML SYRINGE IV PRN (12:17)
[2023-02-07] MEDS ORDERED: Albuterol 2.5mg/3 ml (0.083%) NEB.SOLN INH PRN (12:26)
[2023-02-07] MEDS ORDERED: Lactated Ringers 1000 ml BAG 1,000 ML IV SCH (13:00)
[2023-02-07] MEDS ORDERED: Albuterol HFA INHALER 8 gm MDI INH PRN (15:40)
[2023-02-07] MEDS: ceFAZolin 1 GM ADVAN 1 GM in NS 0.9% 50 ML 50 ML IVPB SCH (17:30)
[2023-02-07] MEDS: Mometasone/Formoter 100/5 MDI INH SCH (19:35)
[2023-02-07] MEDS: Morphine ER 15 mg TAB ** extended release PO SCH (19:56)
[2023-02-07] MEDS ORDERED: Senna TAB 8.6 mg TAB PO SCH (21:00)
[2023-02-07] MEDS: Magnesium Hydroxide LIQ 30 ML UDC PO SCH (21:13)
[2023-02-07] MEDS: CMCS: Olopatadine 0.1% OPHTH (NF) 1 DROP BTL BOTH EYES SCH (21:25)
[2023-02-08] MEDS: ceFAZolin 1 GM ADVAN 1 GM in NS 0.9% 50 ML 50 ML IVPB SCH ×2 (01:13→08:02)
[2023-02-08] MEDS: Morphine ER 15 mg TAB ** extended release PO SCH (03:51)
[2023-02-08 05:43] LABS: Hematocrit 36.4 % (38-53); Hemoglobin 12.4 g/dL (13.2-16.3); Mean Platelet Volume 8.1 fL (7.5-11.2); Platelet Count 278 10^3/uL (150-450)
[2023-02-08 06:05] LABS: Calcium 8.9 mg/dL (8.6-10.3); Creatinine, Serum 0.7 mg/dL (0.67-1.17); Magnesium 1.8 mg/dL (1.9-2.7); Potassium 3.9 mmol/L (3.5-5.0); eGFR CKD-EPI 104.2 (>60)
[2023-02-08] MEDS: Mometasone/Formoter 100/5 MDI INH SCH (07:58)
[2023-02-08] MEDS: CMCS: Olopatadine 0.1% OPHTH (NF) 1 DROP BTL BOTH EYES SCH (07:59)
[2023-02-08] MEDS: Magnesium Hydroxide LIQ 30 ML UDC PO SCH (08:00)
[2023-02-08] MEDS ORDERED: Vitamin THERAPEUTIC TAB PO SCH (09:00)
[2023-02-08] MEDS ORDERED: Magnesium Sulfate 2 gm BAG 2 GM/50 ML BAG IVPB ONE (09:00)
[2023-02-08 10:23] VITALS: BP 156/77
== END 2023-02-08 11:25 | disposition home or self-care (01) ==
LOC: SDS 06:09 → SSU 06:09 → EDSTATUS 07:30
PROVIDERS: ADMIT Physician Assistant; ATTEND Orthopaedic Surgery

== ENCOUNTER 2023-07-20 05:42 | Observation (INO) ==
[~2023-07-20 05:42] MED LIST changes: -Buffered Lidocaine 1% SYRIN 1 ml INTRADERM ONE; -Lactated Ringers 1000 ml BAG 1,000 ML IV SCH; +Naloxone 0.4 mg VIAL 0.4 mg/ml 1 ml VIAL IV PRN; +Ondansetron 4 mg VIAL 2 MG/ML 2 ml VIAL IV PRN
[2023-07-20] MEDS ORDERED: ceFAZolin 2 GM in NS PREMIX 2 GM/100 ML BAG IVPB ONE (06:18)
[2023-07-20 06:30] LABS: Rapid COVID-19 Molecular Undetected (Undetected)
[2023-07-20] MEDS: Buffered Lidocaine 1% SYRIN 1 ml INTRADERM ONE (06:30)
[2023-07-20] MEDS: Lactated Ringers 1000 ml BAG 1,000 ML IV SCH ×2 (06:30→13:13)
[2023-07-20] MEDS ORDERED: Ondansetron 4 mg VIAL 2 MG/ML 2 ml VIAL ONE (06:32)
[2023-07-20] MEDS ORDERED: Sevoflurane BOTTLE ONE (06:32)
[2023-07-20] MEDS ORDERED: Propofol 10 MG/ML 20 ML BTL ONE (06:32)
[2023-07-20] MEDS ORDERED: Dexamethasone IV 4 MG/ML VIAL 1 ml VIAL ONE (06:32)
[2023-07-20] MEDS ORDERED: Midazolam 2 mg/2 ml VIAL 1 mg/ml 2 ml VIAL (2 mg) ONE (06:32)
[2023-07-20] MEDS ORDERED: fentaNYL 100 mcg/2 ml 50 MCG/ML VIAL ONE ×2 (06:32→10:26)
[2023-07-20] MEDS ORDERED: Rocuronium 50 mg VIAL 10 mg/ml 5 ml VIAL (50 mg) ONE (06:38)
[2023-07-20] MEDS ORDERED: Gelfoam Sponge SIZE 100 SPONGE ONE (06:57)
[2023-07-20] MEDS ORDERED: Lidocaine 1% w EPI 1:100,000 MDV 20 ML VIAL ONE (06:57)
[2023-07-20] MEDS ORDERED: Thrombin 5,000 UNITS(BOVINE) for Ultrasound Guided Pseudoaneursym ONE ×2 (06:57→09:22)
[2023-07-20] MEDS ORDERED: ceFAZolin VIAL VIAL ONE (06:57)
[2023-07-20] MEDS ORDERED: Chlorhexidine MOUTHWASH 0.12% 15 ML UDC ONE (06:59)
[2023-07-20] MEDS ORDERED: HYDROmorphone 0.5 MG/0.5 ML SYRINGE ONE (07:32)
[2023-07-20] MEDS ORDERED: Phenylephrine 40 mcg/mL 10mL (400mcg) SYRINGE ONE (07:55)
[2023-07-20] MEDS ORDERED: Glycopyrrolate IV 0.2 MG/ML 1 ML VIAL ONE (08:34)
[2023-07-20] MEDS ORDERED: Magnesium Hydroxide LIQ 30 ML UDC PO PRN (10:13)
[2023-07-20] MEDS ORDERED: Dextran 70/Hypromellose Tears Eye Drops 15 ml BTL (for Artificials Tears) BOTH EYES PRN (10:13)
[2023-07-20] MEDS ORDERED: Phenol 1.4% Throat Spray BTL MT PRN (10:13)
[2023-07-20] MEDS ORDERED: Benzocaine/Menthol LOZ MT PRN (10:13)
[2023-07-20] MEDS ORDERED: Senna TAB 8.6 mg TAB PO PRN (10:13)
[2023-07-20] MEDS ORDERED: Calcium Carb (TUMS) 500 mg CHEW TAB PO PRN (10:13)
[2023-07-20] MEDS ORDERED: Ondansetron 4 mg VIAL 2 MG/ML 2 ml VIAL IV PRN (10:13)
[2023-07-20] MEDS ORDERED: HYDROmorphone 1 MG/1 ML SYRINGE ONE (10:20)
[2023-07-20] MEDS: HYDROmorphone 1 MG/1 ML SYRINGE IV PRN (10:23)
[2023-07-20] MEDS ORDERED: Albuterol HFA INHALER 8 gm MDI INH PRN (10:24)
[2023-07-20] MEDS: fentaNYL 100 mcg/2 ml 50 MCG/ML VIAL IV PRN (10:28)
[2023-07-20] MEDS: Morphine 2 MG/ML SYRINGE IV PRN (11:47)
[2023-07-20] MEDS: HYDROcodone/ACETAMIN 5/325 mg TAB PO PRN (11:48)
[2023-07-20] MEDS: Morphine ER 15 mg TAB ** extended release PO SCH (14:28)
[2023-07-20] MEDS: Mometasone/Formoter 200/5 MDI INH SCH (20:34)
[2023-07-20] MEDS: Morphine ORAL.SOLN 10 mg 2 mg/ml UDC 5 ml (10 mg) PO SCH (22:08)
[2023-07-20] MEDS: CMC:Olopatadine 0.1% OPHTH (NF) 1 DROP BTL BOTH EYES SCH (22:14)
[2023-07-21] MEDS: CMC:Olopatadine 0.1% OPHTH (NF) 1 DROP BTL BOTH EYES SCH (06:15)
[2023-07-21] MEDS: Fluticasone NASAL SPRAY 50MCG 16 gm SPRAY BTL INTRANASAL SCH (09:26)
[2023-07-21 10:01] VITALS: BP 105/88
== END 2023-07-21 11:35 | disposition home or self-care (01) ==
LOC: OR 05:42 → SSU 05:42
PROVIDERS: ADMIT Neurological Surgery; ATTEND Neurological Surgery